=== PATIENT | male | born 1960 | race Caucasian/White ===

== ENCOUNTER 2016-08-18 18:22 | Inpatient (IN) | payer OTHER ==
[~2016-08-18] VITALS: Ht 167.6 cm; Wt 44.5 kg
[~2016-08-18 18:22] MED LIST: AMBIEN PO; GABAPENTIN PO; TRAMADOL PO
--- NOTE | 2016-08-18 18:30 | NUR ---
PT BIBA FROM HOME FOR FEVER. NOTED AMS, PALE, SKIN WARM TO TOUCH. NOTED WITH GTUBE AND CONDOM CATHETER. RESPONDS TO NAME AND TOUCH. VSS. AT FOR EVAL. IV ACCESS STARTED. BLOOD DRAWN FOR LABS. SAFETY AND COMFORT MEASURES PROVIDED. WILL MONITOR.
[2016-08-18 18:48] LABS: BASOPHILS % (AUTO) 0.4 % (0.0-2.0); EOSINOPHILS # (AUTO) 0.2 /CMM (0.0-0.7); EOSINOPHILS % (AUTO) 2.1 % (0.0-6.0); HEMATOCRIT 37 % (39-51); HEMOGLOBIN 12.2 g/dL (13.5-17.5); LYMPHOCYTES # (AUTO) 1.2 /CMM (0.8-4.8); LYMPHOCYTES % (AUTO) 17.3 % (20.0-44.0); MEAN CORPUSCULAR HEMOGLOBIN 30 PG (26.0-33.0); MEAN CORPUSCULAR HGB CONC 33 g/dl (31.0-36.0); MEAN CORPUSCULAR VOLUME 91 fL (80-96); MONOCYTES # (AUTO) 0.3 /CMM (0.1-1.30); NEUTROPHILS # (AUTO) 5.5 /CMM (1.8-8.9); NEUTROPHILS % (AUTO) 76.2 % (43.0-81.0); PLATELET COUNT (AUTO) 245 /CMM (150-450); RDW COEFFICIENT OF VARIATION 12.6 (11.5-15.0); RED BLOOD CELL COUNT(AUTO) 4.07 MIL/uL (4.5-6.0); WHITE BLOOD COUNT (AUTO) 7.2 K/uL (4.3-11.0)
[2016-08-18 18:56] LABS: CALCIUM, SERUM 9.3 mg/dL (8.5-10.1); CARBON DIOXIDE 32 mmol/L (21-32); CHLORIDE 97 mmol/L (98-107); CREATININE 0.7 mg/dL (0.6-1.3); GLUCOSE 93 mg/dL (74-106); POTASSIUM 4.3 mmol/L (3.5-5.1); SODIUM SERUM 137 mmol/L (136-145); UREA NITROGEN, BLOOD 15 mg/dL (7-18)
[2016-08-18 19:00] LABS: INR 1.1 (0.87-1.13); PROTHROMBIN TIME 11.5 SECS (9.5-12.7)
--- NOTE | 2016-08-18 19:00 | NUR ---
CONDOM CATH CHRISTEL'Rosalinda. URINE SAMPLE OBTAINED FROM IN AND OUT CATH.
[2016-08-18 19:02] LABS: ALANINE AMINOTRANSFERASE 29 U/L (12-78); ALBUMIN 3.5 g/dL (3.4-5.0); ALKALINE PHOSPHATASE 98 U/L (46-116); ASPARTATE AMINOTRANSFERASE 28 U/L (15-37); BILIRUBIN,DIRECT 0.1 mg/dL (0.0-0.2); BILIRUBIN,TOTAL 0.5 mg/dL (0.2-1.0); TOTAL PROTEIN, SERUM 7.3 g/dL (6.4-8.2)
[2016-08-18 19:04] LABS: TROPONIN I < 0.017 ng/mL (0.00-0.056)
[2016-08-18] MEDS ORDERED: IV NS 0.9% 1,000 ML ONE ×2 (19:15→22:33)
[2016-08-18] MEDS ORDERED: IV SET PRIMARY PUMP SET 1 EA INFUS.SET MC ONE ×2 (19:15→22:33)
[2016-08-18] MEDS ORDERED: VANCOMYCIN 1 GM VIAL ONE (19:15)
[2016-08-18] MEDS ORDERED: IV D5W 50 ML IV ONE (19:15)
[2016-08-18] MEDS ORDERED: CEFEPIME 1 GM VIAL ONE (19:15)
[2016-08-18] MEDS ORDERED: IV NS 0.9% 500 ML IV ONE (19:15)
[2016-08-18] MEDS ORDERED: IV SET PRIMARY 1 EA INFUS.SET MC ONE (19:15)
--- NOTE | 2016-08-18 19:15 | NUR ---
PATIENT IS RESPONSIVE TO VERBAL AND TACTILE STIMULI, OPENS EYES, DOES NOT FOLLOW COMMANDS. DOES NOT ANSWER QUESTIONS. SAFETY MEASURES IN PLACE. ONGOING VSS MONITORING.
--- NOTE | 2016-08-18 19:15 | NUR ---
ENDORSED TO ALEXANDER ORTIZ FOR GLYNN.
[2016-08-18 19:16] LABS: APPEARANCE,URINE Clear (CLEAR); BILIRUBIN,URINE Negative (NEGATIVE); BLOOD, URINE Negative Ery/uL (NEGATIVE); COLOR,URINE Yellow (YELLOW); KETONES,URINE Negative (NEGATIVE); LEUKOCYTE ESTERASE ,URINE Negative (NEGATIVE); NITRITE, URINE Negative (NEGATIVE); PROTEIN,URINE Negative (NEGATIVE); UGLUCOSE Negative (NEGATIVE); UROBILINOGEN,URINE 0.2 EU/dL (0.2)
--- NOTE | 2016-08-18 19:25 | NUR ---
DR.RUTHERFORD BENJAMIN SOLUTION MAKER
[2016-08-18] MEDS ORDERED: IV NS 0.9% 1,000 ML BAG IV ONE (19:30)
[2016-08-18] MEDS ORDERED: CEFEPIME 1 GM in IV D5W 50 ML IV ONE (19:30)
[2016-08-18] MEDS ORDERED: VANCOMYCIN 1 GM in IV D5W 250 ML IV ONE (19:30)
[2016-08-18] MEDS ORDERED: METH5SOL GT (19:32)
[2016-08-18] MEDS ORDERED: PILO5TAB GT (19:32)
[2016-08-18] MEDS ORDERED: MIRT30TA7 GT (19:32)
[2016-08-18] MEDS ORDERED: GABA600T2 GT (19:32)
--- NOTE | 2016-08-18 19:38 | NUR ---
CALLED NURSING SUP. FOR MS BED
--- NOTE | 2016-08-18 19:46 | NUR ---
[facility] REPAGED
[2016-08-18] MEDS ORDERED: HYDROMORPHONE INJ 2 MG/ML DISP.SYRIN IV PRN (20:00)
[2016-08-18] MEDS ORDERED: ACETAMINOPHEN 325 MG TABLET PO PRN (20:00)
[2016-08-18] MEDS ORDERED: MAGNESIUM HYDROXIDE 30 ML UDC PO PRN (20:00)
[2016-08-18] MEDS ORDERED: HYDROCODONE/APAP 5/325MG 1 EACH TABLET PO PRN (20:00)
[2016-08-18] MEDS ORDERED: ZOLPIDEM TARTRATE 5 MG TABLET PO PRN (20:00)
[2016-08-18] MEDS ORDERED: ONDANSETRON HCL/PF 4 MG/2 ML VIAL IVP PRN (20:00)
[2016-08-18] MEDS ORDERED: Z GUARD REMEDY 2 OZ OINT TP PRN (20:00)
[2016-08-18] MEDS ORDERED: MAG HYDROX/AL HYDROX/SIMETH 30 ML UDC PO PRN (20:00)
--- NOTE | 2016-08-18 20:20 | NUR ---
REPORT GIVEN TO LIU CHARGE NURSE FOR GLYNN.
--- NOTE | 2016-08-18 20:30 | NUR ---
TRANSPORTED PATIENT TO [facility] FLOOR, NO INCIDENT NOTED. NURSE GIPSON AT BEDSIDE.
--- NOTE | 2016-08-18 20:31 | NUR ---
RN NOTES: NEW ADMISSION FROM ER, ACCOMPANIED BY RN,WITH DX:PNEUMONIA,.PATIENT WAS BROUGHT FROM HOME BY CAREGIVER VIA AMBULANCE WITH C/C OF FEVER AND COUGH,STARTED ON IV FLUIDS AND ATB/IV IN ER,PATIENT RESPOND BY OPENING HIS EYES WHEN HIS NAME IS CALLED,LOOKS VERY DROWSY AND SLEEPY,CONFUSED,NO VERBAL COMMUNICATION AT THIS TIME,UNABLE TO OBTAIN HISTORY CAREGIVER IS NOT AROUND.INCONTINENT BOTH BOWEL AND BLADDER ON DIAPER,PEG TUBE IN SITE, DRY AND INTACT NO DRAINAGE NOTED, DRESSING CHANGE,BODY ASSESSMENT DONE, NON BLANCHABLE REDNESS NOTED ON THE SACROCOCCYX AREA,REDNESS BEHIND THE LEFT EAR,DRY SCAB ON THE BUTTOCKS AREA,DRY AND SCALY RIGHT AND LEFT FOOT, PICTURED TAKEN;IV CANNULA ON LEFT FOREARM G#18,IVF STILL ONGOING.FALL,SAFETY AND ASPIRATION PRECAUTION OBSERVE, CALL LIGHT WITHIN EASY REACH, BED LOW AND LOCKED, KEEP ON CLOSE VISUAL CHECK.
[2016-08-18 21:00] VITALS: BP 95/66
[2016-08-18] MEDS ORDERED: ENOXAPARIN SODIUM 40 MG/0.4 ML DISP.SYRIN SQ ONE (22:32)
[2016-08-18] MEDS ORDERED: MIRTAZAPINE 15 MG TABLET ONE (22:32)
[2016-08-18] MEDS: ENOXAPARIN SODIUM 40 MG/0.4 ML DISP.SYRIN SQ SCH (22:45)
--- NOTE | 2016-08-18 22:45 | NUR ---
RN NOTES: LOVENOX SQ AND REMERON GIVEN VIA PEG TUBE, CHECK PLACEMENT THROUGH AUSCULTATION, GASTRIC CONTENT ASPIRATED 15CC,RETURNED.MEDICINE TOLERATED.PUT IN SEMI HIGH FOWLERS POSITION.
--- NOTE | 2016-08-18 22:45 | NUR ---
RN NOTES: IVF OF NS AT 75ML/HR STARTED VIA INFUSSION PUMP, PATIENT IS AWAKE IN BETWEEN.KEPT ON CLOSE WATCH.
[2016-08-18] MEDS: MIRTAZAPINE 15 MG TABLET GT SCH (22:46)
[2016-08-18] MEDS: IV NS 0.9% 1,000 ML IV PRN (22:49)
--- NOTE | 2016-08-19 04:03 | NUR ---
RN NOTES: ABLE TO SLEEP AT SHORT INTERVALS,KEPT ON CLOSE WATCH.
[2016-08-19 08:00] VITALS: BP 103/68
--- NOTE | 2016-08-19 08:00 | NUR ---
MS/RN OPENING NOTES PT. IS IN BED AWAKE, A&OX1. PT. HAS SLURRED SPEECH AND WAS REORIENTED. NO SOB, PT. IS BREATHING ON OXYGEN WITH NASAL CANNULA 2L/MIN. NO S/S OF ACUTE DISTRESS. PT. HAS IV FLUIDS RUNNING AT 75 ML/HR ON LEFT FOREARM IV SITE. PT. HAS SPEECH EVALUATION, DIETARY CONSULT, AND WOUND CONSULT ORDERED. BED IS IN LOW POSITION, 2 SIDE RAILS UP, BED ALARM ON, AND CALL LIGHT WITHIN REACH. WILL CONTINUE TO ASSESS AND MONITOR.
[2016-08-19 08:53] LABS: BASOPHILS % (AUTO) 0.2 % (0.0-2.0); EOSINOPHILS # (AUTO) 0.2 /CMM (0.0-0.7); EOSINOPHILS % (AUTO) 3.1 % (0.0-6.0); HEMATOCRIT 31 % (39-51); HEMOGLOBIN 10.7 g/dL (13.5-17.5); LYMPHOCYTES # (AUTO) 0.8 /CMM (0.8-4.8); LYMPHOCYTES % (AUTO) 15.5 % (20.0-44.0); MEAN CORPUSCULAR HEMOGLOBIN 31 PG (26.0-33.0); MEAN CORPUSCULAR HGB CONC 35 g/dl (31.0-36.0); MEAN CORPUSCULAR VOLUME 90 fL (80-96); MONOCYTES # (AUTO) 0.3 /CMM (0.1-1.30); MONOCYTES % (AUTO) 5.9 % (2.0-12.0); NEUTROPHILS # (AUTO) 3.9 /CMM (1.8-8.9); NEUTROPHILS % (AUTO) 75.3 % (43.0-81.0); PLATELET COUNT (AUTO) 171 /CMM (150-450); RDW COEFFICIENT OF VARIATION 13.6 (11.5-15.0); RED BLOOD CELL COUNT(AUTO) 3.45 MIL/uL (4.5-6.0); WHITE BLOOD COUNT (AUTO) 5.1 K/uL (4.3-11.0)
[2016-08-19] MEDS ORDERED: METHADONE HCL GT SCH (09:00)
[2016-08-19] MEDS ORDERED: PILOCARPINE HCL 5 MG TABLET GT SCH (09:00)
[2016-08-19] MEDS ORDERED: PILOCARPINE 5 MG PO SCH (09:00)
[2016-08-19 09:16] LABS: CALCIUM, SERUM 8.6 mg/dL (8.5-10.1); CREATININE 0.5 mg/dL (0.6-1.3); MAGNESIUM 1.6 mg/dL (1.8-2.4); PHOSPHORUS 3.2 mg/dL (2.5-4.9)
--- NOTE | 2016-08-19 10:30 | NUR ---
MS/RN NOTES PT. WAS EVALUATED BY SPEECH THERAPIST FOR SWALLOW EVALUATION. PER SPEECH THERAPIST PT. IS UNABLE TO SWALLOW, AND IS AT HIGH RISK FOR ASPIRATION. ST RECOMMENDED TO CONTINUE PT. ON NPO.
[2016-08-19] MEDS: PANTOPRAZOLE 40 MG TABLET.DR PO SCH (10:39)
[2016-08-19] MEDS: GABAPENTIN 300 MG CAPSULE GT SCH ×3 (10:39→17:33)
[2016-08-19] MEDS: PIPERACILLIN /TAZOBACTAM 3.375 G in IV D5W 50 ML IV SCH ×2 (12:09→17:32)
--- NOTE | 2016-08-19 12:29 | NUR ---
WOUND CARE CONSULT: PT PRESENTS EXTREMELY THIN AND BONY, IMMOBILE AND INCONTINENT. RECOMMENDATIONS MADE FOR SKIN PROTECTION AND DISCUSSED WITH NURSING STAFF. JANIS ISOFLEX LOW AIRLOSS BED TO BE PLACED WHEN AVAILABLE. PT ON COMFORT GEL MATTRESS AT THIS TIME. PT TO BE TURNED AND REPOSITIONED EVERY 2 HRS PT CONDITION PERMITS, HEELS FLOATED. MD IN AGREEMENT WITH PLAN OF CARE. Addendum: 08/19/16 at 1230 by FLAKO SHARP WNDNU Amended: Links added.
[2016-08-19] MEDS ORDERED: MAGNESIUM OXIDE 400 MG TABLET PO ONE (13:30)
[2016-08-19] MEDS: IV NS 0.9% 1,000 ML IV PRN (13:39)
--- NOTE | 2016-08-19 15:11 | NUR ---
MS/RN NOTES PER DIETARY CONSULT, PT. IS NPO AND WAS RECOMMENDED TO HAVE FIBERSOURCE THROUGH PEG TUBE RATE GOAL 60 ML/HR. START FEEDING AT 30 ML/HR UNTIL PT. TOLERATED 60 ML/HR.
[2016-08-19 16:00] VITALS: BP 92/60
[2016-08-19] MEDS: FIBERSOURCE HN 1,000 ML BOTTLE GT PRN (18:26)
--- NOTE | 2016-08-19 18:44 | NUR ---
MS/RN NOTES STARTED TUBE FEEDING WITH FIBERSOURCE AT 30 ML/HR.
--- NOTE | 2016-08-19 19:30 | NUR ---
MS/RN CLOSING NOTES PT. IS IN BED AWAKE, A&OX1. PT. 'S SPEECH IS SLURRED. NO SOB, PT. IS BREATHING ON OXYGEN AT 2L/MIN, BREATHING IS UNLABORED, AND EVEN. NO S/S OF ACUTE DISTRESS. IV FLUIDS RUNNING AT 75ML/HR AT LEFT FOREARM IV ACCESS SITE. PT. HAS PEG TUBE, AND FEEDING RUNNING AT 30 ML/HR WITHOUT ANY COMPLICATIONS. BED IS IN LOW POSITION, 2 SIDE RAILS UP, CALL LIGHT WITHIN REACH, AND ALL NEEDS ATTENDED TO. WILL ENDORSE REPORT TO INFORMATION ENGINEER NURSE.
[2016-08-19 20:00] VITALS: BP 105/65
[2016-08-19] MEDS: ENOXAPARIN SODIUM 40 MG/0.4 ML DISP.SYRIN SQ SCH (21:24)
[2016-08-19] MEDS: MIRTAZAPINE 15 MG TABLET GT SCH (21:24)
[2016-08-20] MEDS: PIPERACILLIN /TAZOBACTAM 3.375 G in IV D5W 50 ML IV SCH ×4 (00:02→17:07)
--- NOTE | 2016-08-20 04:00 | NUR ---
MS RN NOTES PT SLEEPING. EASILY AROUSABLE. NOT IN ANY DISTRESS. NO SOB NOTED. NO S/SX OF PAIN OR DISCOMFORT AT THIS TIME. WITH IVF & GTF INFUSING WELL. MONITORED ACCORDINGLY. BED IN LOWEST POSITION. SR UP X 3 FOR SAFETY WITH BED ALARM ON. REPORT GIVEN TO CLAUDE WILKINS LVN FOR CONTINUITY OF CARE.
[2016-08-20] MEDS: IV NS 0.9% 1,000 ML IV PRN (04:04)
--- NOTE | 2016-08-20 06:57 | NUR ---
MS RUBBER COMPOUNDER MIXER CLOSING NOTES PT AWAKE AND ALERT NOT IN ANY ACUTE DISTRESS NOTED. WITH IVF OF NS AT 75ML/HR ON HIS LEFT FOREARM. ALSO WITH G-TUBE FEEDING AT 60ML/HR NO ASPIRATION NOTED. ALL DUE MEDS GIVEN AND ALL NEEDS MET STABLE LOR THE NIGHT, KEPT HIM WARM AND COMFORTABLE AT ALL TIMES. PLACE CALL LIGHT AT REACH.
[2016-08-20 07:26] LABS: BASOPHILS % (AUTO) 0.1 % (0.0-2.0); EOSINOPHILS # (AUTO) 0.2 /CMM (0.0-0.7); EOSINOPHILS % (AUTO) 4.6 % (0.0-6.0); HEMATOCRIT 32 % (39-51); HEMOGLOBIN 11.1 g/dL (13.5-17.5); LYMPHOCYTES # (AUTO) 0.7 /CMM (0.8-4.8); LYMPHOCYTES % (AUTO) 12.9 % (20.0-44.0); MEAN CORPUSCULAR HEMOGLOBIN 31 PG (26.0-33.0); MEAN CORPUSCULAR HGB CONC 35 g/dl (31.0-36.0); MEAN CORPUSCULAR VOLUME 90 fL (80-96); MONOCYTES # (AUTO) 0.3 /CMM (0.1-1.30); MONOCYTES % (AUTO) 6.4 % (2.0-12.0); PLATELET COUNT (AUTO) 195 /CMM (150-450); RDW COEFFICIENT OF VARIATION 13.2 (11.5-15.0); RED BLOOD CELL COUNT(AUTO) 3.56 MIL/uL (4.5-6.0); WHITE BLOOD COUNT (AUTO) 5.2 K/uL (4.3-11.0)
[2016-08-20 07:39] LABS: CALCIUM, SERUM 8.4 mg/dL (8.5-10.1); CREATININE 0.6 mg/dL (0.6-1.3); MAGNESIUM 1.8 mg/dL (1.8-2.4)
--- NOTE | 2016-08-20 07:48 | NUR ---
MS/RN OPENING NOTES PT. IS IN BED AWAKE, A&OX1. PT. HAS SLURRED SPEECH AND SAID, " I AM DEAF". NO SOB, BREATHING ON OXYGEN AT 2L/MIN UNLABORED, AND EVENLY. NO S/S OF ACUTE DISTRESS. IV FLUIDS RUNNING AT 75 ML/HR ON LEFT FOREARM 18 GAUGE. PT. TOLERATING FIBERSOURCE TUBE FEEDING RUNNING AT 60 ML/HR, INTAKE IS 539 ML. BED IS IN LOW POSITION, 2 SIDE RAILS UP, CALL LIGHT WITHIN REACH, AND ALL NEEDS ATTENDED TO. WILL CONTINUE TO ASSESS AND MONITOR.
[2016-08-20 08:00] VITALS: BP 101/60
[2016-08-20] MEDS: GABAPENTIN 300 MG CAPSULE GT SCH ×3 (10:13→18:25)
[2016-08-20] MEDS: PANTOPRAZOLE 40 MG TABLET.DR PO SCH (10:13)
[2016-08-20] MEDS: FIBERSOURCE HN 1,000 ML BOTTLE GT PRN (12:01)
--- NOTE | 2016-08-20 14:00 | NUR ---
MS/RN NOTES PT. WAS TAKEN OFF OXYGEN 2L/MIN PER TIFFANY CISNEROS NP ORDERS TO ASSESS IF PT. CAN TOLERATE ROOM AIR. ON ROOM AIR OXYGEN SATURATION WAS 90%- 87%. OXYGEN WAS RESTARTED BACK TO 2L/MIN PER TIFFANY CISNEROS NP, SATURATION WENT UP TO 97%.
[2016-08-20 16:00] VITALS: BP 90/58
--- NOTE | 2016-08-20 18:20 | NUR ---
MS/RN NOTES PT. HAD A TEMP. OF 102.5 F, PT. WAS GIVEN TYLENOL AND ZOSYN IV ANTIBIOTICS. TEMP. RECHECKED AT 1817, TEMP. REDUCED TO 98.6 F.
--- NOTE | 2016-08-20 19:30 | NUR ---
MS/RN CLOSING NOTES PT. IS IN BED AWAKE, A&OX1. PT. VERBALIZED TO CHANGE THE CHANNEL, HE IS DEAF, AND ASKED IF HIS CALLED. NO SOB, PT. IS BREATHING ON OXYGEN WITH NASAL CANNULA 2L/MIN. NO S/S OF ACUTE DISTRESS. PT. HAS IV FLUIDS RUNNING AT 75 ML/HR AND FIBERSOURCE TUBE FEEDING AT60 ML/HR. PEG TUBE FEEDING DRESSING WAS CHANGED, NO S/S OF INFECTION, NO REDNESS, INFLAMMATION, AND NO DRAINAGE NOTED. BED IS IN LOW POSITION, 2 SIDE RAILS UP, AND ALL NEEDS MET AT THIS TIME. WILL ENDORSE REPORT TO MANAGER SALES TRAINING NURSE.
--- NOTE | 2016-08-20 19:40 | NUR ---
MS/RN NOTES RECEIVED PT. LYING IN BED RESTING. PT. EASILY AROUSABLE TO NAME AND TOUCH. AWAKE, ALERT AND ORIENTED TO SELF. BREATHING EVEN AND UNLABORED ON 2LPM O2 VIA NC. NO SOB, RESPIRATORY DISTRESS OR COMPLAINTS OF PAIN NOTED AT THIS TIME. PT. WITH LEFT FOREARM 18 GAUGE PERIPHERAL IV PRESENT, PATENT AND INTACT ADMINISTERING TO PT. NS @ 75 ML/HR. PT. WITH PEG TUBE PRESENT, PATENT AND INTACT ADMINISTERING TO PT. FIBERSOURCE TUBE FEEDING AT 60ML/HR. PT. TOLERATING WELL. BED IN LOWEST POSITION, CALL LIGHT WITHIN REACH, WILL CONTINUE TO MONITOR.
--- NOTE | 2016-08-20 19:55 | NUR ---
MS/RN NOTES PT. IV NS @ 75ML/HR WAS DISCONTINUED PER MD. STOPPED PT. IV FLUIDS. PT. CONTINUES TO REST AND APPEARS COMFORTABLE AT THE MOMENT. WILL CONTINUE TO MONITOR.
[2016-08-20 20:00] VITALS: BP 106/48
[2016-08-20 20:17] VITALS: BP 90/58
[2016-08-20] MEDS: MIRTAZAPINE 15 MG TABLET GT SCH (21:47)
[2016-08-20] MEDS: ENOXAPARIN SODIUM 40 MG/0.4 ML DISP.SYRIN SQ SCH (21:48)
[2016-08-21] MEDS: PIPERACILLIN /TAZOBACTAM 3.375 G in IV D5W 50 ML IV SCH ×4 (00:14→17:39)
[2016-08-21] MEDS ORDERED: IV NS 0.9% 250 ML IV ONE (04:01)
--- NOTE | 2016-08-21 06:29 | NUR ---
MS/RN NOTES PT. LYING IN BED RESTING. BREATHING EVEN AND UNLABORED ON 2LPM O2 VIA NC. NO SOB, RESPIRATORY DISTRESS OR S/S OF PAIN NOTED AT THIS TIME. PT. WITH LEFT FOREARM 18 GAUGE IV SALINE LOCK PRESENT, PATENT AND INTACT. PT. WITH PEG TUBE PRESENT, PATENT AND INTACT ADMINISTERING TO PT. FIBERSOURCE TUBE FEEDING AT 60ML/HR. PT. TOLERATING WELL. NO RESIDUALS NOTED THROUGHOUT SHIFT. ALL PT. NEEDS MET. PT. OFFLOADED, TURNED AND REPOSITIONED Q2H AND NEEDED. BED IN LOWEST POSITION, CALL LIGHT WITHIN REACH, WILL ENDORSE TO DAYSHIFT NURSE FOR CONTINUITY OF CARE.
[2016-08-21 08:00] VITALS: BP 94/60
--- NOTE | 2016-08-21 08:00 | NUR ---
m/s side show entertainer: initial assessment received pt in bed awake, a/ox1-2, speech garble able to make simple needs known, but hard to understand due to unable to understand his wordings. pt able to make simple needs known by yes/no questions. still on g/j tube feeding, keyona. well. instructed to call for assistance. will continue to monitor.
[2016-08-21 08:06] LABS: BASOPHILS % (AUTO) 0.3 % (0.0-2.0); EOSINOPHILS # (AUTO) 0.2 /CMM (0.0-0.7); EOSINOPHILS % (AUTO) 5.4 % (0.0-6.0); HEMATOCRIT 33 % (39-51); HEMOGLOBIN 11.1 g/dL (13.5-17.5); LYMPHOCYTES # (AUTO) 0.6 /CMM (0.8-4.8); MEAN CORPUSCULAR HEMOGLOBIN 31 PG (26.0-33.0); MEAN CORPUSCULAR HGB CONC 34 g/dl (31.0-36.0); MEAN CORPUSCULAR VOLUME 91 fL (80-96); MONOCYTES # (AUTO) 0.3 /CMM (0.1-1.30); MONOCYTES % (AUTO) 6.8 % (2.0-12.0); NEUTROPHILS # (AUTO) 3.2 /CMM (1.8-8.9); NEUTROPHILS % (AUTO) 73.5 % (43.0-81.0); PLATELET COUNT (AUTO) 205 /CMM (150-450); RDW COEFFICIENT OF VARIATION 13.8 (11.5-15.0); WHITE BLOOD COUNT (AUTO) 4.3 K/uL (4.3-11.0)
[2016-08-21 08:40] LABS: CALCIUM, SERUM 8.6 mg/dL (8.5-10.1); CREATININE 0.5 mg/dL (0.6-1.3); MAGNESIUM 1.8 mg/dL (1.8-2.4); PHOSPHORUS 2.7 mg/dL (2.5-4.9); POTASSIUM 3.6 mmol/L (3.5-5.1)
[2016-08-21] MEDS: GABAPENTIN 300 MG CAPSULE GT SCH ×3 (08:57→16:51)
[2016-08-21] MEDS: PANTOPRAZOLE 40 MG TABLET.DR PO SCH (08:57)
[2016-08-21] MEDS: FIBERSOURCE HN 1,000 ML BOTTLE GT PRN (10:12)
--- NOTE | 2016-08-21 11:30 | NUR ---
m/s security systems installer: notes lynnette (child, dpoa) notified, left message via voice mail re: d'c planning home today. kelsy (case management) made aware re: home health order and will make arrangement as planned. pt made aware.
[2016-08-21] MEDS ORDERED: NUTR250L48 GT (11:51)
[2016-08-21] MEDS ORDERED: AMOX-430 PO (11:52)
--- NOTE | 2016-08-21 11:53 | NUR ---
m/s child nutrition assistant: md visit seen and examined by olvin Dialloancp with order continue home health with 24 hour caregiver, Continue tube feedings, Complete antibiotics, Follow up with PCP. order acknowledged.
--- NOTE | 2016-08-21 13:47 | NUR ---
m/s cheesemaking laborer: notes still awaiting for lynnette to call back. kelsy (case management) also left a message earlier re: d'c planning home with home health. left another message to lynnette (child) via voice mail. cn made aware.
[2016-08-21 16:00] VITALS: BP 94/61
--- NOTE | 2016-08-21 16:45 | NUR ---
m/s enterprise manager: notes placed another call to lynnette (child), but still no answer, left message re: d'c back to home today. pt made aware. Will continue to monitor.
--- NOTE | 2016-08-21 18:00 | NUR ---
m/s wood floor refinisher: notes lynnette (child) notified once more, but not available. cn made aware. pt made aware. needs attended. still pt for discharge plan today if lynnette returns his calls. will continue to monitor.
--- NOTE | 2016-08-21 18:35 | NUR ---
m/s terminal supervisor: notes lynnette (child) and kelsy (case management) on the phone with the primary nurse (me) and aware that pt is for discharge home today. per lynnette she has all the tube feedings and informed her she may start his augmentin tomorrow morning bid for 7 days, need to follow up with his primary medical doctor in one to two weeks and verbalized understanding over the phone. med response notified and the earliest they can pick him up at 2100 per angela. cn and case management made aware.
--- NOTE | 2016-08-21 19:15 | NUR ---
m/s angle dozer operator: notes report given to gabo (rn) for continuity of care. lynnette (child) notified and made aware re: pickup driver at 2100 here, spoke to her over the phone. will continue to monitor.
--- NOTE | 2016-08-21 19:20 | NUR ---
RN NOTES RECEIVED PT ASLEEP, HOB ELEVATED, EASILY AROUSABLE TO NAME AND TOUCH. AWAKE, ALERT AND ORIENTED X2, GARBLED UNCLEAR WORDS. ON ROOM AIR WITH GOOD SATURATION, NO SOB, RESPIRATORY DISTRESS OR COMPLAINTS OF PAIN NOTED AT THIS TIME. PT. WITH LEFT FOREARM 18 GAUGE PERIPHERAL IV PATENT AND INTACT WITH ONGOING NS AT 75 ML/HR. PT WITH PEG TUBE PRESENT, PATENT AND INTACT ADMINISTERING TO PT. FIBERSOURCE TUBE FEEDING AT 60ML/HR. PT. TOLERATING WELL. BED IN LOWEST POSITION, CALL LIGHT WITHIN REACH. FOR DISCHARGE HOME, AWAITING FOR PRINTED CIRCUIT BOARD PANELS DEVELOPER BY [facility]BUL[facility] AT 2100. WILL CONTINUE TO MONITOR.
[2016-08-21 20:38] VITALS: BP 96/66
--- NOTE | 2016-08-21 22:25 | NUR ---
RN NOTES PREPARE PT FOR DISCHARGE, DRESSING ON G TUBE DONE AND FLUSHED WITH WATER. , IV ACCESS REMOVED COMPLETELY AND CLEANED THE PT. PT ALERT AND ORIENTED X2, ABLE TO MAKE NEEDS KNOWN, GARBLED WORDS. PT ON ROOM AIR, NO SOB, NO SIGNS OF DISTRESS AND DISCOMFORT NOTED. VITAL SIGNS STABLE, NO COMPLAIN OF PAIN NAUSEA AND VOMITING. BELONGINGS CHECKLIST DONE. DISCHARGE POCKET AND PRESCRIPTION SENT WITH THE PT. REPORT GIVEN TO EMT. DISCHARGED PT IN STABLE CONDITION.
== END 2016-08-21 21:25 | disposition home health service (06) | DRG 137 ==
LOC: ER 18:23 → MED 20:07
PROVIDERS: ADMIT Internal Medicine; ATTEND Internal Medicine
DX: J69.0 Pneumonitis due to inhalation of food and vomit (principal); G92 Toxic encephalopathy; E83.42 Hypomagnesemia; E44.1 Mild protein-calorie malnutrition; G72.9 Myopathy, unspecified; D63.8 Anemia in other chronic diseases classified elsewhere; Z93.1 Gastrostomy status; R53.1 Weakness; Z85.819 Personal history of malignant neoplasm of unspecified site of lip, oral cavity, and pharynx; K08.199 Complete loss of teeth due to other specified cause, unspecified class
CPT/HCPCS: 36415; 71010-TC; 80048-TC; 80076-TC; 81000-TC; 83605-TC; 83735-TC; 84100-TC; 84484-TC; 85025-TC; 85730-TC; 87040-TC; 87081-TC; 87086-TC; 92521; A4606; J0692; J1650; J2543; J3370; J7030; J7040; J7050; J7060; Z7610

== ENCOUNTER 2016-08-30 18:03 | Inpatient (IN) | payer OTHER ==
[~2016-08-30] VITALS: Ht 167.6 cm; Wt 49.9 kg
[~2016-08-30 18:03] MED LIST changes: -AMBIEN PO; +AMOX-430 PO; +GABA600T2 GT; -GABAPENTIN PO; +METH5SOL GT; +MIRT30TA7 GT; +NUTR250L48 GT; +PILO5TAB GT; -TRAMADOL PO
--- NOTE | 2016-08-30 18:08 | NUR ---
PT BBRA FROM HOME FOR ALOC AND FEVER TODAY. PLACED ON MONITOR. GOWNED PT. PT HAS RFA #18 IV ACCESS BIOLOGY INTERN. PT HAS GTUBE IN PLACED. CONDOM CATH URINE THUR GRAVITY. AWAITING MD ORDER
[2016-08-30 18:26] LABS: BASOPHILS % (AUTO) 0.3 % (0.0-2.0); EOSINOPHILS # (AUTO) 0.3 /CMM (0.0-0.7); EOSINOPHILS % (AUTO) 3.7 % (0.0-6.0); HEMATOCRIT 34 % (39-51); HEMOGLOBIN 11.4 g/dL (13.5-17.5); LYMPHOCYTES # (AUTO) 1.1 /CMM (0.8-4.8); LYMPHOCYTES % (AUTO) 16.2 % (20.0-44.0); MEAN CORPUSCULAR HEMOGLOBIN 30 PG (26.0-33.0); MEAN CORPUSCULAR HGB CONC 33 g/dl (31.0-36.0); MEAN CORPUSCULAR VOLUME 90 fL (80-96); MONOCYTES # (AUTO) 0.3 /CMM (0.1-1.30); MONOCYTES % (AUTO) 3.9 % (2.0-12.0); NEUTROPHILS # (AUTO) 5.2 /CMM (1.8-8.9); NEUTROPHILS % (AUTO) 75.9 % (43.0-81.0); PLATELET COUNT (AUTO) 266 /CMM (150-450); RDW COEFFICIENT OF VARIATION 13.2 (11.5-15.0); RED BLOOD CELL COUNT(AUTO) 3.81 MIL/uL (4.5-6.0); WHITE BLOOD COUNT (AUTO) 6.9 K/uL (4.3-11.0)
[2016-08-30] MEDS ORDERED: IV NS 0.9% 1,000 ML BAG IV ONE (18:30)
--- NOTE | 2016-08-30 18:35 | NUR ---
EVP AND CHIEF OPERATING OFFICER AT BEDSIDE
[2016-08-30 18:38] LABS: CALCIUM, SERUM 8.8 mg/dL (8.5-10.1); CARBON DIOXIDE 29 mmol/L (21-32); CHLORIDE 105 mmol/L (98-107); CREATININE 0.6 mg/dL (0.6-1.3); GLUCOSE 79 mg/dL (74-106); POTASSIUM 3.9 mmol/L (3.5-5.1); SODIUM SERUM 140 mmol/L (136-145); UREA NITROGEN, BLOOD 13 mg/dL (7-18)
[2016-08-30 18:40] LABS: INR 1.12 (0.87-1.13); PROTHROMBIN TIME 11.8 SECS (9.5-12.7)
[2016-08-30 18:43] LABS: ALANINE AMINOTRANSFERASE 41 U/L (12-78); ALBUMIN 3.3 g/dL (3.4-5.0); ALKALINE PHOSPHATASE 79 U/L (46-116); ASPARTATE AMINOTRANSFERASE 25 U/L (15-37); BILIRUBIN,DIRECT 0.1 mg/dL (0.0-0.2); BILIRUBIN,TOTAL 0.3 mg/dL (0.2-1.0); TOTAL PROTEIN, SERUM 6.7 g/dL (6.4-8.2)
--- NOTE | 2016-08-30 18:44 | NUR ---
URINE SAMPLE COLLECTED SENT TO LAB
[2016-08-30 18:50] LABS: TROPONIN I < 0.017 ng/mL (0.00-0.056)
[2016-08-30] MEDS ORDERED: IV NS 0.9% 1,000 ML ONE (18:55)
[2016-08-30] MEDS ORDERED: IV SET PRIMARY PUMP SET 1 EA INFUS.SET MC ONE ×2 (18:56→22:08)
[2016-08-30 19:00] LABS: APPEARANCE,URINE Cloudy (CLEAR); BILIRUBIN,URINE Negative (NEGATIVE); BLOOD, URINE Negative Ery/uL (NEGATIVE); COLOR,URINE Yellow (YELLOW); KETONES,URINE Negative (NEGATIVE); LEUKOCYTE ESTERASE ,URINE Trace (NEGATIVE); NITRITE, URINE Negative (NEGATIVE); PROTEIN,URINE Negative (NEGATIVE); UGLUCOSE Negative (NEGATIVE); UROBILINOGEN,URINE 0.2 EU/dL (0.2)
--- NOTE | 2016-08-30 19:08 | NUR ---
GAVE REPORT TO ALEXANDER FOR GLYNN
[2016-08-30 19:36] LABS: BACTERIA,URINE Few /HPF (None Seen); CALCIUM OXALATE CRYSTALS,UR Few /HPF (None Seen); RBC,URINE 0-2 /HPF (0-2); SQUAMOUS EPITHELIAL CELL,UR Few /HPF (None Seen); YEAST,URINE Many /HPF (None Seen)
--- NOTE | 2016-08-30 20:15 | NUR ---
PAGED DR MACHADO FOR ADMISSION
--- NOTE | 2016-08-30 20:39 | NUR ---
Patient is sleeping comfortably at this time. vss.
--- NOTE | 2016-08-30 20:45 | NUR ---
Report called to Isabelle ORTIZ for maria esther.
[2016-08-30 21:15] VITALS: BP 103/69
--- NOTE | 2016-08-30 21:22 | NUR ---
Transported to tele floor room 323-2 via als protocol, no incident noted. Patient is responsive to verbal and tactile stimuli.
[2016-08-30] MEDS ORDERED: ONDANSETRON HCL/PF 4 MG/2 ML VIAL IVP PRN (21:30)
[2016-08-30] MEDS ORDERED: ACETAMINOPHEN 325 MG TABLET PO PRN (21:30)
[2016-08-30] MEDS ORDERED: FIBERSOURCE HN 1,000 ML BOTTLE GT PRN (21:30)
[2016-08-30] MEDS ORDERED: FLUCONAZOLE IN NS 100 MG in PREMIX 1 EA IV SCH ×2 (21:30)
[2016-08-30] MEDS ORDERED: HYDROCODONE/APAP 5/325MG 1 EACH TABLET PO PRN (21:30)
[2016-08-30] MEDS ORDERED: ZOLPIDEM TARTRATE 5 MG TABLET PO PRN (21:30)
[2016-08-30] MEDS ORDERED: MAGNESIUM HYDROXIDE 30 ML UDC PO PRN (21:30)
[2016-08-30] MEDS ORDERED: Z GUARD REMEDY 2 OZ OINT TP PRN (21:30)
[2016-08-30] MEDS ORDERED: MAG HYDROX/AL HYDROX/SIMETH 30 ML UDC PO PRN (21:30)
[2016-08-30] MEDS ORDERED: FLUCONAZOLE IN NS 100 ML IV ONE (22:01)
[2016-08-30] MEDS ORDERED: IV NS 0.9% 250 ML IV ONE (22:08)
[2016-08-30] MEDS ORDERED: SECONDARY IV SET 1 EA INFUS.SET MC ONE (22:08)
--- NOTE | 2016-08-30 22:30 | NUR ---
RADIOLOGICAL DEFENSE OFFICER INITIAL NOTE RECEIVED PT COMING FROM ER VIA GURNEY, NO SIGNS OF PAIN OR RESPIRATORY DISTRESS NOTED DURING PHYSICAL ASSESSMENT, VITAL SIGNS ARE WNL, ADMITED BY MD MACHADO, WILL CARRY OUT ORDERS, SAFETY MEASURES WILL BE MAINTAINED AT ALL TIMES, NEEDS WILL BE ANTICIPATED AND ATTENDED TO PROMPTLY.
[2016-08-31] VITALS: BP 92/60
[2016-08-31 04:00] VITALS: BP 108/52
[2016-08-31 06:32] LABS: BASOPHILS % (AUTO) 0.2 % (0.0-2.0); EOSINOPHILS # (AUTO) 0.3 /CMM (0.0-0.7); EOSINOPHILS % (AUTO) 4.6 % (0.0-6.0); HEMATOCRIT 31 % (39-51); HEMOGLOBIN 10.5 g/dL (13.5-17.5); LYMPHOCYTES # (AUTO) 1.4 /CMM (0.8-4.8); LYMPHOCYTES % (AUTO) 22.5 % (20.0-44.0); MEAN CORPUSCULAR HEMOGLOBIN 31 PG (26.0-33.0); MEAN CORPUSCULAR HGB CONC 34 g/dl (31.0-36.0); MEAN CORPUSCULAR VOLUME 90 fL (80-96); MONOCYTES # (AUTO) 0.3 /CMM (0.1-1.30); MONOCYTES % (AUTO) 4.8 % (2.0-12.0); NEUTROPHILS # (AUTO) 4.2 /CMM (1.8-8.9); NEUTROPHILS % (AUTO) 67.9 % (43.0-81.0); PLATELET COUNT (AUTO) 209 /CMM (150-450); RDW COEFFICIENT OF VARIATION 14.1 (11.5-15.0); RED BLOOD CELL COUNT(AUTO) 3.46 MIL/uL (4.5-6.0); WHITE BLOOD COUNT (AUTO) 6.2 K/uL (4.3-11.0)
[2016-08-31 06:53] LABS: CALCIUM, SERUM 8.8 mg/dL (8.5-10.1); CREATININE 0.6 mg/dL (0.6-1.3); MAGNESIUM 1.7 mg/dL (1.8-2.4); PHOSPHORUS 3.2 mg/dL (2.5-4.9); POTASSIUM 4.1 mmol/L (3.5-5.1)
[2016-08-31 07:22] VITALS: BP 92/61
--- NOTE | 2016-08-31 07:30 | NUR ---
CUSTOMER CONTACT REPRESENTATIVE NOTES RECEIVED PATIENT IN BED, SLEEPING. AROUSES EASILY. ON OXYGEN AT 2L/MIN VIA NC, NO SOB NOTED. GTUBE CLAMPED. APPEARS COMFORTABLE IN BED, NO C/O PAIN AT THIS TIME. CALL LIGHT WITHIN REACH. WILL CONT TO MONITOR.
--- NOTE | 2016-08-31 07:32 | NUR ---
CONTROLS TECHNICIAN CLOSING NOTE PT IS STABLE AND COMFORTABLE, ENDORSED TO INCOMING NURSE FOR GLYNN.
[2016-08-31 08:00] VITALS: BP 92/61
[2016-08-31] MEDS ORDERED: AMOX/CLAVULANATE 875 MG TABLET PO SCH (09:00)
[2016-08-31] MEDS ORDERED: PILOCARPINE HCL 5 MG TABLET GT SCH (11:00)
[2016-08-31] MEDS: METHADONE HCL 5 MG TABLET GT SCH (11:00)
--- NOTE | 2016-08-31 11:00 | NUR ---
CALLED SPOKE TO KIERATA PAEZY- PATIENTS ELEVATOR INSTALLER APPRENTICE AT HOME. PER GABRIELA PATIENT IS USING GTUBE FOR FOOD SUPPLEMENT AND MEDICATIONS. INFORMED DR. NEVES, PER MD TO START GTUBE FEEDING. PLACEMENT OF GTUBE CHECKED BY 2 RN.
[2016-08-31] MEDS: PANTOPRAZOLE 40 MG TABLET.DR PO SCH (11:12)
[2016-08-31] MEDS: GABAPENTIN 300 MG CAPSULE GT SCH ×4 (11:12→22:35)
[2016-08-31] MEDS ORDERED: SECONDARY IV SET 1 EA INFUS.SET MC ONE (11:25)
[2016-08-31] MEDS: Magnesium 1GM/D5W 100ML PREMIX 100 ML IV SCH ×2 (11:29→12:36)
[2016-08-31 16:00] VITALS: BP 94/63
[2016-08-31] MEDS: AMOX/CLAVULANATE 875 MG TABLET PO SCH (18:03)
--- NOTE | 2016-08-31 19:30 | NUR ---
MS RN INITIAL NOTE RECEIVED PT AWAKE AND ALERT ORIENTED X2, PT HAS DIFFICULTY SPEAKING BUT IS ABLE TO COMMUNICATE SIMPLE NEEDS, NO PAIN OR RESPIRATORY DISTRESS REPORTED DURING PHYSICAL ASSESSMENT, PT WILL BE REPOSITIONED FREQUENTLY TO PREVENT ANY SKIN BREAKDOWN AND TO PROMOTE COMFORT, PT IS CLEAN/DRY AND COMFORTABLE, SAFETY MEASURES WILL BE MAINTAINED AT ALL TIMES, NEEDS WILL BE ANTICIPATED AND ATTENDED TO DURING PHYSICAL ASSESSMENT.
--- NOTE | 2016-08-31 19:30 | NUR ---
MS RN CLOSING NOTES PATIENT IN BED, NOT IN DISTRESS. A/O X1 AND CONFUSED. ON ANTIBIOTIC WITH NO ADVERSE REACTION, AFEBRILE. VOIDED WITHOUT DIFFICULTY. MAGNESIUM SUPPLEMENTED. ON GTUBE FIBERSOURCE AT 60ML/HR, TOLERATING WELL. NO VOMITING, NO C/O NAUSEA. APPEARS COMFORTABLE IN BED. CALL LIGHT WITHIN REACH. ENDORSED TO ALUMINUM MOLDING MACHINE OPERATOR RN FOR GLYNN.
[2016-08-31 20:00] VITALS: BP 105/72
[2016-08-31] MEDS ORDERED: FLUCONAZOLE IN NS 100 MG in PREMIX 1 EA IV SCH ×2 (22:00)
[2016-08-31] MEDS ORDERED: MIRTAZAPINE 15 MG TABLET GT SCH (22:00)
--- NOTE | 2016-09-01 07:12 | NUR ---
MS RN CLOSING NOTE PT REMAINED STABLE DURING ANIMAL CARE TAKER, ALL NEEDS WERE MET, SAFETY MEASURES OBSERVED AT ALL TIMES, NEEDS ANTICIPATED AND ATTENDED TO, WILL ENDORSE TO INCOMING NURSE FOR GLYNN.
[2016-09-01 08:00] VITALS: BP 95/65
--- NOTE | 2016-09-01 08:00 | NUR ---
MS RN Note Received PT. Pt is awake, A&O x 2. Pt is able to communicate with some difficulty speaking. No pain or SOB noted. Patient will be frequently repositioned to maintain skin integrity. Will continue to monitor and provide care.
[2016-09-01 08:47] LABS: CREATININE 0.6 mg/dL (0.6-1.3); POTASSIUM 4.4 mmol/L (3.5-5.1)
[2016-09-01] MEDS ORDERED: PILOCARPINE HCL 5 MG TABLET GT SCH (09:00)
[2016-09-01] MEDS: GABAPENTIN 300 MG CAPSULE GT SCH ×3 (11:23→16:09)
[2016-09-01] MEDS: METHADONE HCL 5 MG TABLET GT SCH (11:23)
[2016-09-01] MEDS: AMOX/CLAVULANATE 875 MG TABLET PO SCH ×2 (11:23→16:09)
[2016-09-01] MEDS: PANTOPRAZOLE 40 MG TABLET.DR PO SCH (11:23)
[2016-09-01 14:00] VITALS: BP 95/62
[2016-09-01 16:41] VITALS: BP 95/62
--- NOTE | 2016-09-01 18:17 | NUR ---
DISCHARGED PT HOME VIA AMBULANCE WITH STABLE V/S.PT HAS NO BELONGINGS.DISCHARGE INSTRUCTIONS AND PRESCRIPTIONS GIVEN TO THE METEOROLOGIST LIAISON.IV H/L REMOVED TO LT AC.PT DENIES PAIN OR DISTRESS.CALLED PT'S , GABRIELA AND MADE AWARE.
== END 2016-09-01 18:10 | disposition home or self-care (01) | DRG 501 ==
LOC: ER 18:05 → TELE 20:07 → MED 08-31 10:27
PROVIDERS: ADMIT Family Medicine; ATTEND Family Medicine
DX: B37.49 Other urogenital candidiasis (principal); G92 Toxic encephalopathy; E44.0 Moderate protein-calorie malnutrition; G62.9 Polyneuropathy, unspecified; Z85.819 Personal history of malignant neoplasm of unspecified site of lip, oral cavity, and pharynx; Z79.899 Other long term (current) drug therapy; D63.8 Anemia in other chronic diseases classified elsewhere; E83.42 Hypomagnesemia; G89.4 Chronic pain syndrome; Z68.1 Body mass index [BMI] 19.9 or less, adult; E86.0 Dehydration
CPT/HCPCS: 36415; 70450-TC; 71010-TC; 80048-TC; 80061-TC; 80076-TC; 81000-TC; 83605-TC; 83735-TC; 84100-TC; 84484-TC; 85025-TC; 85730-TC; 87040-TC; 87081-TC; 87086-TC; 92521; 92526; 94799-TC; 97001-TC; A4216; A4606; J1450; J3475; J7030; J7050; Z7610

== ENCOUNTER 2016-10-05 15:53 | Inpatient (IN) | payer MEDICARE, OTHER ==
[~2016-10-05] VITALS: Ht 162.6 cm; Wt 41.3 kg
[2016-10-05] VITALS (7 sets, daily range): BP systolic 64–105; BP diastolic 45–105
--- NOTE | 2016-10-05 15:56 | NUR ---
pt bibra from home to er bed 10. per report, caregiver called 911. pt noted to be more altered than normal. hypoxic satting at high 80's. involuntary twitching noted. gowned and placed on monitor. placed on o2@3L now satting at low 90's. awaiting md gonsalez.
--- NOTE | 2016-10-05 16:07 | NUR ---
dr fisher at bedside for eval.
[2016-10-05 16:26] LABS: BASOPHILS # (AUTO) 0.2 /CMM (0.0-0.2); BASOPHILS % (AUTO) 2.6 % (0.0-2.0); EOSINOPHILS # (AUTO) 0.1 /CMM (0.0-0.7); EOSINOPHILS % (AUTO) 1.3 % (0.0-6.0); HEMATOCRIT 33 % (39-51); HEMOGLOBIN 11.1 g/dL (13.5-17.5); LYMPHOCYTES # (AUTO) 0.9 /CMM (0.8-4.8); LYMPHOCYTES % (AUTO) 12.5 % (20.0-44.0); MEAN CORPUSCULAR HEMOGLOBIN 30 PG (26.0-33.0); MEAN CORPUSCULAR HGB CONC 33 g/dl (31.0-36.0); MEAN CORPUSCULAR VOLUME 89 fL (80-96); MONOCYTES # (AUTO) 0.3 /CMM (0.1-1.30); MONOCYTES % (AUTO) 3.8 % (2.0-12.0); NEUTROPHILS % (AUTO) 79.8 % (43.0-81.0); PLATELET COUNT (AUTO) 216 /CMM (150-450); RDW COEFFICIENT OF VARIATION 13.8 (11.5-15.0); RED BLOOD CELL COUNT(AUTO) 3.76 MIL/uL (4.5-6.0); WHITE BLOOD COUNT (AUTO) 7.5 K/uL (4.3-11.0)
--- NOTE | 2016-10-05 16:29 | NUR ---
pt to radiology for head ct scan via [facility].
[2016-10-05] MEDS ORDERED: IV NS 0.9% 1,000 ML BAG IV ONE (16:30)
[2016-10-05 16:35] LABS: APPEARANCE,URINE Cloudy (CLEAR); BILIRUBIN,URINE Negative (NEGATIVE); BLOOD, URINE Trace-lysed Ery/uL (NEGATIVE); COLOR,URINE Yellow (YELLOW); KETONES,URINE Negative (NEGATIVE); LEUKOCYTE ESTERASE ,URINE Trace (NEGATIVE); NITRITE, URINE Negative (NEGATIVE); PH,URINE 6.5 (5.0-8.0); PROTEIN,URINE Negative (NEGATIVE); UGLUCOSE Negative (NEGATIVE); UROBILINOGEN,URINE 0.2 EU/dL (0.2)
[2016-10-05 16:38] LABS: INR 1.11 (0.87-1.13); PROTHROMBIN TIME 11.6 SECS (9.5-12.7)
[2016-10-05 16:40] LABS: CARBON DIOXIDE 34 mmol/L (21-32); CHLORIDE 103 mmol/L (98-107); CREATININE 0.7 mg/dL (0.6-1.3); GLUCOSE 100 mg/dL (74-106); POTASSIUM 4.3 mmol/L (3.5-5.1); SODIUM SERUM 139 mmol/L (136-145); UREA NITROGEN, BLOOD 13 mg/dL (7-18)
[2016-10-05 16:43] LABS: TROPONIN I < 0.017 ng/mL (0.00-0.056)
[2016-10-05 16:46] LABS: ALANINE AMINOTRANSFERASE 43 U/L (12-78); ALBUMIN 3.3 g/dL (3.4-5.0); ALKALINE PHOSPHATASE 89 U/L (46-116); ASPARTATE AMINOTRANSFERASE 31 U/L (15-37); BILIRUBIN,DIRECT 0.1 mg/dL (0.0-0.2); BILIRUBIN,TOTAL 0.4 mg/dL (0.2-1.0); TOTAL PROTEIN, SERUM 6.6 g/dL (6.4-8.2)
[2016-10-05 16:47] LABS: WBC,URINE 0-2 /HPF (0-3)
[2016-10-05 16:48] LABS: BACTERIA,URINE Many /HPF (None Seen); CALCIUM OXALATE CRYSTALS,UR Few /HPF (None Seen); SQUAMOUS EPITHELIAL CELL,UR Few /HPF (None Seen); URINE AMORPHOUS URATE Moderate /HPF (None Seen); YEAST,URINE Moderate /HPF (None Seen)
[2016-10-05] MEDS ORDERED: LEVETIRACETAM (500MG) 500 MG in IV NS 0.9% 100 ML IV ONE (17:30)
[2016-10-05] MEDS ORDERED: LORAZEPAM INJ 2 MG/ML VIAL ONE (17:40)
[2016-10-05 17:52] LABS: ABG BASE EXCESS -0.4 mmol/L; ABG OXYGEN SATURATION 95.4 % (92.0-98.5); ABG PCO2 45.7 mmHg (35.0-45.0); ABG PH 7.361 (7.350-7.450); ABG PO2 88.8 mmHg (75.0-100.0); AaDO2 56.9 mmHg; COHb 0.3 % (0.5-1.5); MetHb 0.5 % (0.0-1.5); O2Hb 94.6 % (94.0-97.0); SITE, ABG Left Radial; VENT MODE, BG Nasal Cannula
[2016-10-05] MEDS ORDERED: LORAZEPAM INJ 2 MG/ML VIAL IV ONE (18:00)
[2016-10-05] MEDS ORDERED: ONDANSETRON HCL/PF 4 MG/2 ML VIAL IVP PRN (18:00)
[2016-10-05] MEDS ORDERED: ALBUTEROL FS 2.5 MG/3 ML VIAL.NEB NEB PRN (18:00)
[2016-10-05] MEDS ORDERED: MAG HYDROX/AL HYDROX/SIMETH 30 ML UDC PO PRN (18:00)
[2016-10-05] MEDS ORDERED: ACETAMINOPHEN 325 MG TABLET PO PRN (18:00)
[2016-10-05] MEDS ORDERED: Z GUARD REMEDY 2 OZ OINT TP PRN (18:00)
--- NOTE | 2016-10-05 18:40 | NUR ---
ICU/RN PT IS ADMITTED FROM ER.WITH ALOC,SEIZURES.V/S STABLE,AFEBRILE.NO PAIN REPORTED AT THIS TIME.PT IS RESPONDING ON PAIN STIMULATION.G-TUBE CLAMPED.IV -HL.CONDOM CATH IS ON .REDNESS ON MICHAEL AREA AND LOWER BACK NOTED.TALK TO THE FAMILY ,SHE HAS DPOA. GIRL FRIEND .PT IS DNR/DNI CODE.MD NOTIFIED. REPORT GIVEN TO LUPE/ANGEL
--- NOTE | 2016-10-05 18:40 | NUR ---
report given to lon. pt awaitng transfer to floor.
--- NOTE | 2016-10-05 19:22 | NUR ---
STEAMBOAT PILOT. INITIAL ASSESSMENT. RECEIVED THE PT REST ON THE BED. PT OPEN EYES. DOES NOT FOLLOW COMMANDS. NURSERY NURSE SHOWING NSR. IV LT HAND 20G, GT INTACT, NOT RESPONDING PAIN . PT IS VERY UNSTABLE. WILL CONTINUE TO MONITOR VITALS.
[2016-10-05] MEDS: IV NS 0.9% 1,000 ML IV PRN (20:13)
[2016-10-05] MEDS ORDERED: LEVETIRACETAM (500MG) 500 MG in IV NS 0.9% 100 ML IV SCH (21:00)
[2016-10-06] VITALS (28 sets, daily range): BP systolic 83–131; BP diastolic 48–83
[2016-10-06] MEDS: LORAZEPAM INJ 2 MG/ML VIAL IV PRN ×2 (03:44→21:19)
--- NOTE | 2016-10-06 03:45 | NUR ---
PARTICIPANT ADMINISTRATOR. AM CARE, ORAL CARE, BED BATH GIVEN. LINEN CHANGED.REMAINING SAME OXYGEN 2L VIA NASAL CANNULA. SAT 98%CNC LATHE MACHINIST SHOWING NSR. IV LT HAND 20G. IVF NS 75ML/H. CONDOM CATH INTACT. HOB ELEVBATED. AFEBRILE. TURN AND REPOSITON Q2H. WILL CONTINUE TO MONITOR VITALS.
--- NOTE | 2016-10-06 03:48 | NUR ---
INVOLUNTARY TWITCHING NOTED. ATIVAN GIVEN PER ORDERED.
[2016-10-06 04:39] LABS: BASOPHILS % (AUTO) 0.1 % (0.0-2.0); EOSINOPHILS # (AUTO) 0.1 /CMM (0.0-0.7); EOSINOPHILS % (AUTO) 1.2 % (0.0-6.0); HEMATOCRIT 32 % (39-51); HEMOGLOBIN 10.8 g/dL (13.5-17.5); LYMPHOCYTES # (AUTO) 0.8 /CMM (0.8-4.8); LYMPHOCYTES % (AUTO) 9.3 % (20.0-44.0); MEAN CORPUSCULAR HEMOGLOBIN 30 PG (26.0-33.0); MEAN CORPUSCULAR HGB CONC 33 g/dl (31.0-36.0); MEAN CORPUSCULAR VOLUME 90 fL (80-96); MONOCYTES # (AUTO) 0.1 /CMM (0.1-1.30); MONOCYTES % (AUTO) 1.3 % (2.0-12.0); NEUTROPHILS # (AUTO) 7.5 /CMM (1.8-8.9); NEUTROPHILS % (AUTO) 88.1 % (43.0-81.0); PLATELET COUNT (AUTO) 191 /CMM (150-450); RDW COEFFICIENT OF VARIATION 14.5 (11.5-15.0); RED BLOOD CELL COUNT(AUTO) 3.63 MIL/uL (4.5-6.0); WHITE BLOOD COUNT (AUTO) 8.5 K/uL (4.3-11.0)
[2016-10-06 04:58] LABS: CALCIUM, SERUM 8.3 mg/dL (8.5-10.1); CREATININE 0.5 mg/dL (0.6-1.3); MAGNESIUM 1.5 mg/dL (1.8-2.4); PHOSPHORUS 3.4 mg/dL (2.5-4.9)
[2016-10-06] MEDS: IV NS 0.9% 1,000 ML IV PRN ×4 (07:25→19:58)
--- NOTE | 2016-10-06 07:25 | NUR ---
ICU/RN - Notes Received pt lethargic, responds to painful stimuli. Desaturating on O2 @ 4lpm, placed on simple mask @ 10lpm. HOB semi fowlers. On telemetry SR 80's. BP hypotensive. IV patent and intact with IVF infusing well. Condom catheter noted, with urine draining to gravity. Seizure precautions observed. Safety and comfort measures in place. Will continue to monitor pt closely.
--- NOTE | 2016-10-06 08:40 | NUR ---
ICU/RN - Notes Dr Lynn made aware of pt's blood pressure marginally hypotensive, received orders to increase IVF to 150mL/hr. Per MD, pt is LINDY status, and will speak with girlfriend regarding goals of care. Also received orders to resume tube feeding. Will carry out.
[2016-10-06] MEDS: Magnesium 1GM/D5W 100ML PREMIX 100 ML IV SCH ×3 (09:32→11:43)
[2016-10-06] MEDS: GABAPENTIN 300 MG CAPSULE GT SCH ×3 (09:40→16:09)
[2016-10-06] MEDS: LEVETIRACETAM (500MG) 500 MG in IV NS 0.9% 100 ML IV SCH ×2 (10:06→20:19)
[2016-10-06] MEDS: FIBERSOURCE HN 1,000 ML BOTTLE GT PRN (10:40)
[2016-10-06] MEDS: Thiamine 100 MG in IV D5W 50 ML IV SCH (10:40)
--- NOTE | 2016-10-06 10:41 | NUR ---
WOUND CARE CONSULT PATIENT SEEN AND SKIN INTEGRITY ASSESSMENT DONE. PATIENT PRESENTS WITH STAGE 1 NONBLANCHABLE REDNESS TO THE SACRAL REGION 2CM X 1CM X 0, AND BILATERAL FOOT SEVERELY DRY SKIN WITH THICKENED, LONG YELLOW TOENAILS X 10. RECOMMEND ATRACTAIN CREAM TO BILATERAL FEET DAILY. RECOMMEND PODIATRY CONSULT FOR NAIL CARE. PATIENT ON 1ST STEP LOW AIRLOSS MATTRESS, EYAD AT 12, PATIENT VERY FRAIL AND BONY. RECOMMEND TURNING SCHED Q 2 HOURS AND BILATERAL HEEL FLOATING PATIENT CONDITION PERMITS. RECOMMEND CONTINUE USE OF Z GUARD FOR SKIN/MOISTURE MANAGMENT. ALL DISCUSSED WITH NURSING AT THE BEDSIDE.
[2016-10-06 10:44] LABS: IRON, SERUM 15 ug/dl (50-175); TOTAL IRON BINDING CAPACITY 243 ug/dl (250-450)
[2016-10-06] MEDS ORDERED: HYDROCODONE/APAP 5/325MG 1 EACH TABLET PO PRN (15:00)
--- NOTE | 2016-10-06 15:45 | NUR ---
ICU/RN - Notes Notified Dr Lynn pt is hypotensive, with sBP ~ 80's to 90's and that urine is growing gram negative rods. Received orders to start IV Zosyn, give 1L NS bolus, and stat lactic acid. Will carry out orders.
[2016-10-06] MEDS ORDERED: IV NS 0.9% 1,000 ML IV ONE ×2 (16:00→18:00)
[2016-10-06] MEDS: PIPERACILLIN /TAZOBACTAM 3.375 G in IV D5W 50 ML IV SCH (16:09)
--- NOTE | 2016-10-06 16:29 | NUR ---
ICU/RN - Notes Notified Dr Lynn that pt not tolerating tube feeding with gastric residuals ~ 200mL. Received order to hold tube feeding. Order carried out.
--- NOTE | 2016-10-06 16:37 | NUR ---
ICU/RN - Notes Call made out to pt's girlfriend/DPOA Jamal Estes in attempt to update regarding pt's plan of care. No answer, message left.
--- NOTE | 2016-10-06 19:48 | NUR ---
DEVELOPER ADVOCATE. INITIAL ASSESSMENT. RECEIVED THE PT REST ON THE BED. PT IS LETHARGIC. DOES NOT FOLLOW COMMANDS. GEOMETRY TEACHER SHOWING NSR. OXYGEN 10L VIA MASK. SAT 98%. IV RT AND LT HAND IVF NS 150ML/H. GT CLAMPED. HOB ELEVATED. CONDOM CATH INTACT. TURN AND REPOSITION Q2H. WILL CONTINUE TO MONITOR VITALS.
[2016-10-07] VITALS (12 sets, daily range): BP systolic 75–117; BP diastolic 33–73
[2016-10-07] MEDS: PIPERACILLIN /TAZOBACTAM 3.375 G in IV D5W 50 ML IV SCH ×4 (00:06→20:32)
--- NOTE | 2016-10-07 03:52 | NUR ---
BUSINESS BANKER. AM CARE. ORAL CARE, BED BATH GIVEN. REMAINING SAME OXYGEN 4L VIA SIMPLE MASK. PRINTING MECHANIST SHOWING NSR,GT FEEDING TOLERARED WELL. CONTURN AND REPOSITION Q2H. WIPP WILL CONTINUE TO MONITOR VITALS/
[2016-10-07] MEDS: IV NS 0.9% 1,000 ML IV PRN ×3 (04:16→20:47)
[2016-10-07 04:30] LABS: BASOPHILS % (AUTO) 0.2 % (0.0-2.0); EOSINOPHILS # (AUTO) 0.1 /CMM (0.0-0.7); EOSINOPHILS % (AUTO) 1.3 % (0.0-6.0); HEMATOCRIT 30 % (39-51); HEMOGLOBIN 10.2 g/dL (13.5-17.5); LYMPHOCYTES % (AUTO) 11.2 % (20.0-44.0); MEAN CORPUSCULAR HEMOGLOBIN 30 PG (26.0-33.0); MEAN CORPUSCULAR HGB CONC 34 g/dl (31.0-36.0); MEAN CORPUSCULAR VOLUME 89 fL (80-96); MONOCYTES # (AUTO) 0.4 /CMM (0.1-1.30); MONOCYTES % (AUTO) 4.3 % (2.0-12.0); NEUTROPHILS # (AUTO) 7.4 /CMM (1.8-8.9); PLATELET COUNT (AUTO) 158 /CMM (150-450); RDW COEFFICIENT OF VARIATION 14.3 (11.5-15.0); RED BLOOD CELL COUNT(AUTO) 3.39 MIL/uL (4.5-6.0); WHITE BLOOD COUNT (AUTO) 8.9 K/uL (4.3-11.0)
[2016-10-07 04:49] LABS: CALCIUM, SERUM 7.6 mg/dL (8.5-10.1); CREATININE 0.6 mg/dL (0.6-1.3); MAGNESIUM 1.7 mg/dL (1.8-2.4); PHOSPHORUS 2.3 mg/dL (2.5-4.9); POTASSIUM 3.9 mmol/L (3.5-5.1)
--- NOTE | 2016-10-07 07:15 | NUR ---
ICU INITIAL NOTES RECEIVED PT IN BED, ASLEEP, AROUSES TO NAME AND PAIN STIMULI, UNABLE TO FOLLOW COMMANDS, PT IS ON 10L SIMPLE MASK, SATING 100%, NO S/S OF RESP.DISTRESS OR SOB NOTED AT THIS TIME, PT IS ON BEDSIDE MONITOR SHOWING SR-SB, NO C/O OF CHEST PAIN OR DISCOMFORT AT THIS TIME, PT HAS LAC # 18G, SL, L HAND # 20G, RUNNING NS @ 150ML/HR, C/D/I/PATENT, FLUSHING WELL, NO S/S OF INFECTION/ INFILTRATION NOTED AT THIS TIME, PT HAS GTUBE INTACT, CLAMPED AT THIS TIME, D/T HIGH RESIDUALS, FLUSHING WELL, PT IS NOTED WITH SKIN ISSUES, CONDOM CATH WAS REMOVED, PT IN DIAPER AT THIS TIME, ALL SAFETY MEASURES IN PLACE AT ALL TIMES. CALL LIGHT WITHIN EASY REACH, WILL MONITOR PT CLOSELY FOR CHANGES
[2016-10-07] MEDS: GABAPENTIN 300 MG CAPSULE GT SCH ×3 (09:44→17:45)
[2016-10-07] MEDS: LEVETIRACETAM (500MG) 500 MG in IV NS 0.9% 100 ML IV SCH (09:45)
[2016-10-07] MEDS: Thiamine 100 MG in IV D5W 50 ML IV SCH (09:45)
[2016-10-07] MEDS: UREA 10% -AHA 4% CREAM 57 GM TUBE TP SCH (09:45)
--- NOTE | 2016-10-07 10:32 | NUR ---
ICU NOTE MADE ROUNDS, SONIA ORDER STOPPED
--- NOTE | 2016-10-07 10:45 | NUR ---
ICU NOTE TEXTED KAY FILIBERTO REGARDING HIGH RESIDUALS, NO NEW ORDERS AT THIS TIME
[2016-10-07 11:10] LABS: *SPE A/G RATIO 1.2 (0.7-1.7); *SPE ALBUMIN 3.2 g/dL (2.9-4.4); *SPE ALPHA-1-GLOBULIN 0.4 g/dL (0.0-0.4); *SPE ALPHA-2-GLOBULIN 0.7 g/dL (0.4-1.0); *SPE BETA GLOBULIN 0.9 g/dL (0.7-1.3); *SPE GLOBULIN, TOTAL 2.7 g/dL (2.2-3.9); *SPE M-SPIKE Not Observed g/dL (Not Observed); *SPE PROTEIN TOTAL 5.9 g/dL (6.0-8.5); *SPEGAMMA GLOBULIN 0.7 g/dL (0.4-1.8)
[2016-10-07] MEDS ORDERED: Magnesium 1GM/D5W 100ML PREMIX 100 ML IV SCH ×2 (11:12→19:30)
--- NOTE | 2016-10-07 11:18 | NUR ---
ICU NOTE REPORT GIVEN TO PRESTON, 323-1, PT WAS TRANSFERRED WITH ACLS PROTOCOL, RN AND DOOR CLOSER AWARE PT IN ROOM.
[2016-10-07] MEDS ORDERED: K PHOS NEUTRAL 250 MG TABLET PO ONE (14:00)
[2016-10-07] MEDS ORDERED: FERROUS SULFATE (325 MG) 325 MG/TAB TABLET PO SCH (17:00)
[2016-10-07] MEDS: FERROUS SULFATE UDC 300 MG/5 ML UDC GT SCH (17:45)
[2016-10-07] MEDS: FIBERSOURCE HN 1,000 ML BOTTLE GT PRN (20:35)
--- NOTE | 2016-10-07 20:44 | NUR ---
TELE/RN NOTES PT. IS IN BED A&O TO SELF. ON TELE MONITOR READING SINUS BRADYCARDIA 55 BPM. BREATHING ON OXYGEN UNLABORED 3L/MIN WITH NASAL CANNULA. NO S/S OF ACUTE DISTRESS. IV FLUIDS RUNNING AT 150 ML/HR AND 100 ML/HR. PT. IS WEARING DVT PUMPS. MEPILEX APPLIED FOR SACRAL REDNESS. BED IS IN LOW POSITION, 2 SIDE RAILS UP, AND CALL LIGHT IS WITHIN REACH. PT. WAS GIVEN PAIN MEDICATION DUE TO VERBALIZING BEING IN PAIN. WILL ENDORSE REPORT TO SOLAR POOL HEATING INSTALLER NURSE.
[2016-10-08] VITALS: BP 106/58
[2016-10-08] MEDS: PIPERACILLIN /TAZOBACTAM 3.375 G in IV D5W 50 ML IV SCH ×4 (00:33→18:01)
[2016-10-08 04:00] VITALS: BP 99/55
[2016-10-08] MEDS: IV NS 0.9% 1,000 ML IV PRN ×2 (05:13→17:43)
--- NOTE | 2016-10-08 06:00 | NUR ---
MS ORTIZ NOTES PT PULLED OUT GT. PAGED DR. NEVES. AWAITING FOR CALLBACK. WILL CONTINUE TO MONITOR Addendum: 10/08/16 at 0640 by HUMA MOSELEY RN DEREK STEWART NOT
[2016-10-08 06:26] LABS: BASOPHILS % (AUTO) 0.2 % (0.0-2.0); EOSINOPHILS # (AUTO) 0.1 /CMM (0.0-0.7); EOSINOPHILS % (AUTO) 2.3 % (0.0-6.0); HEMATOCRIT 32 % (39-51); HEMOGLOBIN 10.7 g/dL (13.5-17.5); LYMPHOCYTES # (AUTO) 0.7 /CMM (0.8-4.8); LYMPHOCYTES % (AUTO) 13.1 % (20.0-44.0); MEAN CORPUSCULAR HEMOGLOBIN 30 PG (26.0-33.0); MEAN CORPUSCULAR HGB CONC 34 g/dl (31.0-36.0); MEAN CORPUSCULAR VOLUME 89 fL (80-96); MONOCYTES # (AUTO) 0.3 /CMM (0.1-1.30); MONOCYTES % (AUTO) 6.2 % (2.0-12.0); NEUTROPHILS # (AUTO) 4.1 /CMM (1.8-8.9); NEUTROPHILS % (AUTO) 78.2 % (43.0-81.0); PLATELET COUNT (AUTO) 180 /CMM (150-450); RDW COEFFICIENT OF VARIATION 14.5 (11.5-15.0); RED BLOOD CELL COUNT(AUTO) 3.54 MIL/uL (4.5-6.0); WHITE BLOOD COUNT (AUTO) 5.2 K/uL (4.3-11.0)
--- NOTE | 2016-10-08 06:38 | NUR ---
COIL SPRING ASSEMBLER NOTES PT AWAKE & RESPONSIVE. NOT IN ANY DISTRESS. NO SOB NOTED. NO S/SX OF ANY PAIN OR DISCOMFORT AT THIS TIME. ON TELE SR @ 63 WITH IVF INFUSING WELL. AM CARE DONE. MONITORED ACCORDINGLY. CALL LIGHT WITHIN REACH. BED IN LOWEST POSITION. SR UP X 3 WITH BED ALARM ON FOR SAFETY. WILL ENDORSE TO NEXT SHIFT.
--- NOTE | 2016-10-08 06:40 | NUR ---
BUSINESS DATA ANALYST NOTES DR. NEVES CALLED. MADE AWARE RE PT'S PULLED OUT GT. NO NEW ORDERS AT THIS TIME. WILL ENDORSE TO NEXT SHIFT RN. MIXING ENGINEER NOTIFIED.
[2016-10-08 06:51] LABS: CALCIUM, SERUM 7.8 mg/dL (8.5-10.1); CREATININE 0.5 mg/dL (0.6-1.3); MAGNESIUM 1.7 mg/dL (1.8-2.4); PHOSPHORUS 2.8 mg/dL (2.5-4.9); POTASSIUM 3.5 mmol/L (3.5-5.1)
--- NOTE | 2016-10-08 07:30 | NUR ---
TELE/RN OPENING NOTES RECEIVED PT IN BED AWAKE, A&OX SELF, GARBLED SPEECH. PER VALVE AND REGULATOR REPAIRER NURSE, PT. PULLED OUT HIS PEG TUBE FEEDING WAS DISCONTINUED, AND MD WAS NOTIFIED. TELE READING SINUS BRADYCARDIA 61 BPM. BREATHING ON OXYGEN 3 L/MIN. IV FLUIDS RUNNING AT 150 ML/HR. DVT PUMPS ARE ON, BED IS IN LOW POSITION, 2 SIDE RAILS UP, CALL LIGHT IS WITHIN REACH. WILL CONTINUE TO ASSESS AND MONITOR PT.
[2016-10-08 08:00] VITALS: BP 110/74
[2016-10-08] MEDS: LORAZEPAM INJ 2 MG/ML VIAL IV PRN ×4 (08:32→22:49)
[2016-10-08] MEDS: UREA 10% -AHA 4% CREAM 57 GM TUBE TP SCH (08:36)
[2016-10-08] MEDS: THIAMINE HCL 100 MG TABLET GT SCH (08:36)
[2016-10-08] MEDS: FERROUS SULFATE UDC 300 MG/5 ML UDC GT SCH ×2 (08:36→16:50)
[2016-10-08] MEDS: GABAPENTIN 300 MG CAPSULE GT SCH ×3 (08:36→16:50)
--- NOTE | 2016-10-08 08:37 | NUR ---
TELE/RN NOTES DID NOT ADMINISTER MEDICATIONS DUE TO NO PEG TUBE MEDICATION ACCESS. PT. IS AGITATED, AND THROWING PILLOWS OF HIS BED. ADMINISTERED 1 MG OF ATIVAN IVP.
--- NOTE | 2016-10-08 09:15 | NUR ---
TELE/RN NOTES NOTIFIED MD MATHIS WAS GIVEN TO PT. DUE TO AGITATION, AND THAT PT.'S PEG TUBE WAS PULLED OUT LAST NIGHT.
[2016-10-08] MEDS: Magnesium 1GM/D5W 100ML PREMIX 100 ML IV SCH ×2 (10:07→15:16)
--- NOTE | 2016-10-08 14:41 | NUR ---
RN NOTES DID NOT ADMINISTER NEURONTIN DUE TO DUE ACCESS UNAVAILABLE. MD IS AWARE.
--- NOTE | 2016-10-08 15:19 | NUR ---
TELE/RN NOTES PT. HAS 1:1 SITTER.
[2016-10-08] MEDS ORDERED: OLANZAPINE 10 MG VIAL IM ONE (15:30)
[2016-10-08 16:00] VITALS: BP 115/65
--- NOTE | 2016-10-08 16:51 | NUR ---
TELE/RN NOTES EGD AND PEG PLACEMENT CONSENT FORMS FILLED OUT. CALLED PT.'S GIRLFRIEND PHONE NUMBER FROM [employer] FROM TO OBTAIN CONSENT FOR SURGICAL PROCEDURE. LEFT MESSAGE TO CALL BACK WITH [id number] PHONE NUMBER.
--- NOTE | 2016-10-08 19:40 | NUR ---
TELE/RN OFF TO OR FOR PEG REPLACEMENT.
--- NOTE | 2016-10-08 19:42 | NUR ---
TELE/RN CLOSING NOTES RECEIVED PT. CONSENT FOR EGD AND PEG PLACEMENT PROCEDURE FROM PT.'S GIRLFRIEND OVER THE PHONE. PRE OP CHECKLIST WAS COMPLETED. TELE READING IS NORMAL SINUS RHYTHM 87 BPM. PT. IS NPO IN BED A&OX1 TO SELF, HAS GARBLED SPEECH. BREATHING ON ROOM AIR UNLABORED AND EVENLY. NO S/S OF ACUTE DISTRESS. IV FLUIDS RUNNING AT 150 ML/HR. PT. HAS BEEN AGITATED AND ATTEMPTED TO GET OUT OF BED, PT. HAS A 1:1 SITTER. OR NURSE. WILL ENDORSE REPORT TO DEPUTY CLERK OF SUPERIOR COURT NURSE.
--- NOTE | 2016-10-08 20:40 | NUR ---
TELE/RN PATIENT BACK FROM GTUBE REPLACEMENT. AWAKE, CONFUSED, APPEAR COMFORTABLE, NO SIGNS OF DISTRESS NOTED, MOVES ALL EXTREMITIES, GT SITE WITH GAUZE DRESSING CLEAN, DRY AND INTACT. ORDERS CARRIED OUT. WILL CONTINUE TO MONITOR.
--- NOTE | 2016-10-08 22:53 | NUR ---
TELE/RN PATIENT VERY RESTLESS AND AGITATED, ATIVAN 1 MG IVP WAS GIVEN ORDERED. WILL CONTINUE TO MONITOR.
--- NOTE | 2016-10-08 23:30 | NUR ---
TELE/RN PATIENT IS SLEEPING AT THIS TIME, AROUSABLE, APPEAR COMFORTABLE, NO SIGNS OF DISTRESS NOTED, WILL CONTINUE TO MONITOR.
[2016-10-09] VITALS: BP 108/60
[2016-10-09] MEDS: PIPERACILLIN /TAZOBACTAM 3.375 G in IV D5W 50 ML IV SCH ×5 (00:18→23:36)
[2016-10-09] MEDS: LORAZEPAM INJ 2 MG/ML VIAL IV PRN (01:15)
--- NOTE | 2016-10-09 01:17 | NUR ---
TELE/RN PATIENT IS VERY AGITATED AND RESTLESS, YELLING, ATIVAN 1 MG IVP WAS GIVEN ORDERED. WILL MONITOR.
--- NOTE | 2016-10-09 02:00 | NUR ---
TELE/RN PATIENT IS SLEEPING AT THIS TIME, AROUSABLE, APPEAR COMFORTABLE, NO SIGNS OF DISTRESS NOTED, WILL CONTINUE TO MONITOR.
[2016-10-09 04:00] VITALS: BP 102/62
[2016-10-09] MEDS: IV NS 0.9% 1,000 ML IV PRN ×2 (05:45→17:32)
[2016-10-09] MEDS: FIBERSOURCE HN 1,000 ML BOTTLE GT PRN ×2 (05:56→17:35)
--- NOTE | 2016-10-09 06:30 | NUR ---
TELE/RN PATIENT SLEEPING, COMFORTABLE, NO DISTRESS NOTED. SITTER AT BEDSIDE. ALL NEEDS ATTENDED AT THIS TIME. WILL CONTINUE TO MONITOR.
[2016-10-09 07:03] LABS: BASOPHILS % (AUTO) 0.3 % (0.0-2.0); EOSINOPHILS # (AUTO) 0.1 /CMM (0.0-0.7); EOSINOPHILS % (AUTO) 2.9 % (0.0-6.0); HEMATOCRIT 31 % (39-51); HEMOGLOBIN 10.4 g/dL (13.5-17.5); LYMPHOCYTES # (AUTO) 0.8 /CMM (0.8-4.8); LYMPHOCYTES % (AUTO) 17.2 % (20.0-44.0); MEAN CORPUSCULAR HEMOGLOBIN 30 PG (26.0-33.0); MEAN CORPUSCULAR HGB CONC 34 g/dl (31.0-36.0); MEAN CORPUSCULAR VOLUME 89 fL (80-96); MONOCYTES # (AUTO) 0.3 /CMM (0.1-1.30); MONOCYTES % (AUTO) 5.7 % (2.0-12.0); NEUTROPHILS # (AUTO) 3.3 /CMM (1.8-8.9); NEUTROPHILS % (AUTO) 73.9 % (43.0-81.0); PLATELET COUNT (AUTO) 174 /CMM (150-450); RDW COEFFICIENT OF VARIATION 14.3 (11.5-15.0); RED BLOOD CELL COUNT(AUTO) 3.47 MIL/uL (4.5-6.0); WHITE BLOOD COUNT (AUTO) 4.4 K/uL (4.3-11.0)
[2016-10-09 07:15] LABS: CALCIUM, SERUM 8.2 mg/dL (8.5-10.1); CREATININE 0.4 mg/dL (0.6-1.3); MAGNESIUM 1.7 mg/dL (1.8-2.4); PHOSPHORUS 2.7 mg/dL (2.5-4.9); POTASSIUM 3.2 mmol/L (3.5-5.1)
--- NOTE | 2016-10-09 07:30 | NUR ---
TELE/RN OPENING NOTES 1:1 SITTER NEAR BEDSIDE. RECEIVED PT. NPO, IN BED, A&OX1 TO SELF, SPEECH IS GARBLED. BREATHING ON ROOM AIR UNLABORED WITH OXYGEN SATURATION AT 94%. PT. IS ON TELE MONITOR. NO S/S OF ACUTE DISTRESS. NEW G TUBE PLACEMENT POST- OP, TOLERATING FIBERSOURCE RUNNING AT 60 ML/HR. IV FLUIDS RUNNING AT 150 ML/HR. BED IS IN LOW POSITION, 2 SIDE RAILS UP, CALL LIGHT IS WITHIN REACH.
[2016-10-09] MEDS: GABAPENTIN 300 MG CAPSULE GT SCH ×3 (08:45→17:33)
[2016-10-09] MEDS: THIAMINE HCL 100 MG TABLET GT SCH (08:45)
[2016-10-09] MEDS: FERROUS SULFATE UDC 300 MG/5 ML UDC GT SCH ×2 (08:45→17:33)
[2016-10-09] MEDS: UREA 10% -AHA 4% CREAM 57 GM TUBE TP SCH (08:46)
--- NOTE | 2016-10-09 09:00 | NUR ---
TELE/RN NOTES PT.'S IV WAS INFILTRATED ON RIGHT ANTECUBITAL SITE, NEW IV WAS REPLACED ON LEFT FOREARM SITE GAUGE 22. IV FLUIDS STARTED 150 ML/HR.
[2016-10-09] MEDS: POTASSIUM CHLORIDE 20 MEQ POWDER PACKET NG SCH ×2 (10:52→12:34)
[2016-10-09] MEDS: Magnesium 1GM/D5W 100ML PREMIX 100 ML IV SCH ×2 (10:52→12:34)
--- NOTE | 2016-10-09 19:30 | NUR ---
RN NOTES: RECEIVED PATIENT AWAKE ON BED, A/OX1, WITH SITTER,FIBERSOURCE AND IVF ONGOING,FALL,SAFETY,SEIZURE AND ASPIRATION PRECAUTION OBSERVED,ON TELE MONITORING RATE-68 SINUS RHYTHM, NO SIGN OF RESPIRATORY DISTRESS NOTED, CALL LIGHT WITH IN REACH, KEPT ON CLOSE WATCH.
--- NOTE | 2016-10-09 19:44 | NUR ---
TELE/RN CLOSING NOTES 1:1 SITTER NEAR BEDSIDE. PT. NPO, IN BED, A&OX1 TO SELF, SPEECH IS GARBLED. BREATHING ON ROOM AIR UNLABORED. PT. IS ON TELE MONITOR READING SINUS RHYTHM 60 BPM. NO S/S OF ACUTE DISTRESS. G TUBE PLACEMENT TOLERATING FIBERSOURCE RUNNING AT 60 ML/HR. IV FLUIDS RUNNING AT 150 ML/HR. BED IS IN LOW POSITION, 2 SIDE RAILS UP, CALL LIGHT IS WITHIN REACH.
[2016-10-09 20:00] VITALS: BP_SYST 104; BP_SYST 135; BP_DIAS 69; BP_DIAS 92
--- NOTE | 2016-10-09 20:40 | NUR ---
RN NOTES; TURNING DONE, DIAPER SOAKED,CLEAN AND CHANGE,SITTER AT BEDSIDE, CALL LIGHT WITHIN REACH.
[2016-10-10] VITALS: BP 102/70
[2016-10-10] MEDS: IV NS 0.9% 1,000 ML IV PRN ×2 (01:29→09:07)
[2016-10-10 04:00] VITALS: BP 107/56
--- NOTE | 2016-10-10 04:58 | NUR ---
RN NOTES: AWAKEN, HE IS REMOVING HIS NASAL CANNULA, SPO2-93% ROOM AIR,DUE MEDICATION GIVEN, FEEDING AND IVF ONGOING, NO PAIN OR DISCOMFORT, NO SIGN OF SOB NOTED, KEPT ON CLOSE WATCH.
[2016-10-10] MEDS: PIPERACILLIN /TAZOBACTAM 3.375 G in IV D5W 50 ML IV SCH ×4 (05:09→23:04)
[2016-10-10 06:49] LABS: BASOPHILS % (AUTO) 0.3 % (0.0-2.0); EOSINOPHILS # (AUTO) 0.1 /CMM (0.0-0.7); EOSINOPHILS % (AUTO) 4.2 % (0.0-6.0); HEMATOCRIT 31 % (39-51); HEMOGLOBIN 10.6 g/dL (13.5-17.5); LYMPHOCYTES # (AUTO) 0.8 /CMM (0.8-4.8); LYMPHOCYTES % (AUTO) 22.3 % (20.0-44.0); MEAN CORPUSCULAR HEMOGLOBIN 30 PG (26.0-33.0); MEAN CORPUSCULAR HGB CONC 34 g/dl (31.0-36.0); MEAN CORPUSCULAR VOLUME 89 fL (80-96); MONOCYTES # (AUTO) 0.2 /CMM (0.1-1.30); MONOCYTES % (AUTO) 7.2 % (2.0-12.0); NEUTROPHILS # (AUTO) 2.3 /CMM (1.8-8.9); PLATELET COUNT (AUTO) 179 /CMM (150-450); RDW COEFFICIENT OF VARIATION 14.3 (11.5-15.0); RED BLOOD CELL COUNT(AUTO) 3.49 MIL/uL (4.5-6.0); WHITE BLOOD COUNT (AUTO) 3.4 K/uL (4.3-11.0)
[2016-10-10 07:06] LABS: CALCIUM, SERUM 7.9 mg/dL (8.5-10.1); CREATININE 0.4 mg/dL (0.6-1.3); MAGNESIUM 1.7 mg/dL (1.8-2.4); PHOSPHORUS 3.2 mg/dL (2.5-4.9); POTASSIUM 4.1 mmol/L (3.5-5.1)
--- NOTE | 2016-10-10 07:30 | NUR ---
RN NOTES: ASLEEP AT SHORT INTERVALS, DIAPER CHANGE, TURNING DONE, SEIZURE PRECAUTION OBSERVE,ENDORSED TO NEXT SHIFT FOR CONTINUITY OF CARE.
[2016-10-10 08:00] VITALS: BP 118/66
--- NOTE | 2016-10-10 08:10 | NUR ---
ECCLESIASTICAL WORKER OPEN NOTES RECEIVED REPORT FROM UTILITY MECHANIC SUPERVISOR NURSE. PATIENT IS ALERT AND ORIENTED TO NAME, ONLY. 1:1 SITTER AT BEDSIDE FOR SAFETY. BED IN LOW POSITION, LOCKED AND TWO SIDE RAILS ARE UP. IV SITE IS INTACT AND PATENT. GT TUBE IS RUNNING FIBERSOURCE AT 60ML/HR. NO SIGNS AND SYMPTOMS OF DISTRESS OR PAIN. WILL CONTINUE TO ASSESS AND MONITOR PATIENT THROUGH OUT MY SHIFT.
[2016-10-10] MEDS: FERROUS SULFATE UDC 300 MG/5 ML UDC GT SCH ×2 (09:03→16:32)
[2016-10-10] MEDS: THIAMINE HCL 100 MG TABLET GT SCH (09:04)
[2016-10-10] MEDS: UREA 10% -AHA 4% CREAM 57 GM TUBE TP SCH (09:04)
[2016-10-10] MEDS: GABAPENTIN 300 MG CAPSULE GT SCH ×3 (09:04→16:32)
--- NOTE | 2016-10-10 09:15 | NUR ---
HELD NS 150ML/HR TILL FURTHER CLARIFICATION WITH MD. CHARGE NURSE IS AWARE
[2016-10-10] MEDS: Magnesium 1GM/D5W 100ML PREMIX 100 ML IV SCH ×2 (11:50→14:07)
[2016-10-10] MEDS: FIBERSOURCE HN 1,000 ML BOTTLE GT PRN (11:56)
[2016-10-10 12:00] VITALS: BP 106/73
[2016-10-10] MEDS ORDERED: FERR300L GT (12:30)
--- NOTE | 2016-10-10 14:15 | NUR ---
LEFT A MESSAGE TO GABRIELA MONTGOMERY AT [phone] TO CALL BACK REGARDING DISCHARGE.
--- NOTE | 2016-10-10 15:10 | NUR ---
ANOTHER CALL ATTEMPTED. NO ANSWER AT [phone]
--- NOTE | 2016-10-10 15:40 | NUR ---
ANOTHER CALL ATTEMPTED. NO ANSWER AT [phone]
[2016-10-10 16:00] VITALS: BP 110/76
--- NOTE | 2016-10-10 16:17 | NUR ---
ANOTHER CALL ATTEMPTED. NO ANSWER AT [phone]
[2016-10-10] MEDS: LORAZEPAM INJ 2 MG/ML VIAL IV PRN (16:32)
--- NOTE | 2016-10-10 16:42 | NUR ---
ANOTHER CALL ATTEMPTED. NO ANSWER AT [phone]
--- NOTE | 2016-10-10 17:02 | NUR ---
ANOTHER CALL ATTEMPTED. NO ANSWER AT [phone]
--- NOTE | 2016-10-10 18:10 | NUR ---
ANOTHER CALL ATTEMPTED. NO ANSWER AT [phone]
--- NOTE | 2016-10-10 18:31 | NUR ---
TELE / RN CLOSING NOTES PATIENT IS IN BED. ALERT AND ORIENTED TO SELF ONLY. UNCLEAR SPEECH. NO SIGNS AND SYMPTOMS OF DISTRESS OR PAIN. IV IS INTACT AND PATENT, HL ONLY. BED IN LOW POSITION, LOCKED AND TWO SIDE RAILS ARE UP. 1:1 SITTER AT BEDSIDE FOR SAFETY ONLY. MAGNESIUM 1.7, 2 GRAMS OF MAGNESIUM ADMINISTERED OVER 2 HOURS. GASTRIC TUBE IN INTACT AND FLUSHED, NO REDNESS, NO INFLAMMATION. SINUS RHYTHM 62 ON THE MONITOR. PATIENT DISCHARGE ORDER RECEIVED, ALL PAPERWORK SIGNED AND PLACED IN THE CHART. PICTURES WERE TAKEN AND PLACED IN THE CHART. I WAS UNABLE TO GET A HOLD OF THE GIRLFRIEND, ANIBAL. TRIED TO CALL 7 TIMES AND LEFT 2 MESSAGES. PATIENT IS GOING HOME BUT HIS GIRLFRIEND DIDN'T SPIRAL TUBE WINDER, THEREFORE; PATIENT CAN'T LEAVE THE HOSPITAL. MED-RESPONSE IS ON WILL CALL. ALL NURSING NEEDS ANTICIPATED. PATIENT KEPT CLEAN, DRY AND SAFE. WILL ENDORSE TO MARKET RESEARCH SENIOR PROJECT MANAGER NURSE
--- NOTE | 2016-10-10 19:00 | NUR ---
TELE OPENING NOTES RECEIVED PT IN BED, A/O X 1, CONFUSED SELF, 1:1 SITTER, RESPIRATION EVEN AND UNLABORED, NO S/S OF DISTRESS. SAFETY PRECAUTIONS IN PLACE, BED LOW LOCKED, CALL LIGHT IN REACH WILL CONTINUE TO MONITOR.
[2016-10-10 20:00] VITALS: BP 115/68
[2016-10-11] VITALS: BP 100/52
[2016-10-11 00:16] VITALS: BP 100/52
[2016-10-11 04:00] VITALS: BP 106/68
[2016-10-11] MEDS: PIPERACILLIN /TAZOBACTAM 3.375 G in IV D5W 50 ML IV SCH (05:04)
--- NOTE | 2016-10-11 06:37 | NUR ---
LICENSED CLINICIAN CLOSING NOTES PATIENT COMFORTABLY ASLEEP AND EASILY AWAKEN, HEAD OF BED ELEVATED FOR BETTER LUNG EXPANSION 1:1 SITTER PATIENT NOW TOLERATES ROOM AIR 02 SAT 98%. IV SITE NO S/S OF INFILTRATED, RESPIRATIONS EVEN AND UNLABORED. NO S/S OF ACUTE DISTRESS, SKIN WARM AND DRY TO TOUCH, AFEBRILE, ALL NURSING CARE NEEDS PROVIDED AND RENDERED, NEEDS ATTENDED AND ANTICIPATED, KEPT CLEAN AND DRY AND COMFORTABLE, ON ATB WITH NO A/R NOTED. GOOD SKIN CARE PROVIDED. REPOSITIONED Q2H FOR COMFORT AND SKIN MGT. FREQUENT VISUAL CHECK DONE FOR SAFETY EVERY 2 HOURS. REPOSITIONED EVERY 2 HOURS FOR COMFORT AND SKIN MGT. SAFE HAZARD FREE ENVIRONMENT PROVIDED. CALL LIGHT WITHIN EASY TO REACH, ON LOW BED AT ALL TIMES TO ENSURE SAFETY, WILL ENDORSE TO THE NEXT SHIFT CONTINUE PLAN OF CARE. ON TELE MONITORING SR 72'S Addendum: 10/11/16 at 0639 by SHAY ANAYA RN GT INFUSING ORDERED TOLERATED WELL
[2016-10-11 07:01] LABS: CALCIUM, SERUM 8.6 mg/dL (8.5-10.1); CREATININE 0.5 mg/dL (0.6-1.3); MAGNESIUM 1.8 mg/dL (1.8-2.4); POTASSIUM 3.9 mmol/L (3.5-5.1)
--- NOTE | 2016-10-11 07:10 | NUR ---
HORSERADISH MAKER OPEN NOTES RECEIVED REPORT FROM SUPERVISOR INSULATION NURSE. PATIENT IS IN BED. ALERT AND ORIENTED TO SELF ONLY. 1:1 SITTER AT BEDSIDE. NO SIGNS AND SYMPTOMS OF DISTRESS OR PAIN. BED IN LOW POSITION, LOCKED AND TWO SIDE RAILS ARE UP. WILL CONTINUE TO ASSESS AND MONITOR PATIENT THROUGH OUT MY SHIFT
[2016-10-11] MEDS: FIBERSOURCE HN 1,000 ML BOTTLE GT PRN (07:51)
[2016-10-11] MEDS: GABAPENTIN 300 MG CAPSULE GT SCH (07:55)
[2016-10-11] MEDS: UREA 10% -AHA 4% CREAM 57 GM TUBE TP SCH (07:55)
[2016-10-11] MEDS: THIAMINE HCL 100 MG TABLET GT SCH (07:55)
[2016-10-11] MEDS: FERROUS SULFATE UDC 300 MG/5 ML UDC GT SCH (07:55)
--- NOTE | 2016-10-11 10:28 | NUR ---
PATIENT GIRLFRIEND, ANIBAL, CALLED BACK. PATIENT IS LEAVING AT 12:30PM
--- NOTE | 2016-10-11 12:25 | NUR ---
PATIENT DISCHARGE ORDERS RECEIVED AND CARRIED OUT. PATIENT IS GOING HOME IN A STABLE CONDITION. NO SIGNS AND SYMPTOMS OF DISTRESS OR PAIN. DISCHARGE INSTRUCTION, MEDICATIONS, AND PRESCRIPTIONS GAVE TO ANIBAL, GIRLFRIEND/CAREGIVER AT 11:05AM VIA TELEPHONE. ALL PERSONAL BELONGING WITH PATIENT AT TIME OF DISCHARGE. PICTURES WERE TAKEN PRIOR TO DISCHARGE AND PLACED IN THE CHART. TWO RNs SIGNED THE DISCHARGE INSTRUCTION DUE TO PATIENT UNABLE TO SIGN. IV SITE DISCONTINUED. ID BAND REMOVED. TELE BOX REMOVED. PATIENT IS GOING HOME WITH GASTRIC TUBE, FEEDING TO RESUME AT HOME. PATIENT IS BEING TRANSPORTED HOME VIA AMBULANCE PROVIDED BY [facility] AND [facility] SELL[facility] SPECIALIST.
== END 2016-10-11 12:20 | disposition home or self-care (01) | DRG 100 ==
LOC: ER 15:54 → ICU 18:19 → MED 10-07 11:10 → TELE 10-07 11:39
PROVIDERS: ADMIT Internal Medicine; ATTEND Internal Medicine
PROC: 0DH63UZ Insertion of Feeding Device into Stomach, Percutaneous Approach (ICD-10-PCS; principal; 2016-10-08 19:50)
DX: G40.909 Epilepsy, unspecified, not intractable, without status epilepticus (principal); E43 Unspecified severe protein-calorie malnutrition; G93.41 Metabolic encephalopathy; G61.81 Chronic inflammatory demyelinating polyneuritis; N39.0 Urinary tract infection, site not specified; Z43.1 Encounter for attention to gastrostomy; R64 Cachexia; Z68.1 Body mass index [BMI] 19.9 or less, adult; E86.1 Hypovolemia; C32.9 Malignant neoplasm of larynx, unspecified; D63.8 Anemia in other chronic diseases classified elsewhere; E86.0 Dehydration; R13.10 Dysphagia, unspecified; G89.4 Chronic pain syndrome; G62.9 Polyneuropathy, unspecified; I95.9 Hypotension, unspecified; E83.51 Hypocalcemia; E83.42 Hypomagnesemia; R09.02 Hypoxemia; Z66 Do not resuscitate; K29.70 Gastritis, unspecified, without bleeding; B96.5 Pseudomonas (aeruginosa) (mallei) (pseudomallei) as the cause of diseases classified elsewhere; C14.0 Malignant neoplasm of pharynx, unspecified
CPT/HCPCS: 36415; 36600; 70450-TC; 71010-TC; 80048-TC; 80061-TC; 80076-TC; 81000-TC; 82728-TC; 82746; 82962-TC; 83540-TC; 83605-TC; 83735-TC; 84100-TC; 84155; 84165; 84443-TC; 84484-TC; 85025-TC; 85730-TC; 87040-TC; 87081-TC; 87086-TC; 87186-TC; 93307-TC; 94762-TC; 94799-TC; 95819-TC; A4349; A4606; J1953; J2060; J2543; J3411; J3475; J3490; J7030; J7050; J7060; Z7610